=== PATIENT | female | born 1960 | race African-American/Black ===

== ENCOUNTER 2022-07-13 14:26 | Outpatient (REF) | payer BC, SELFPAY ==
[2022-07-13 14:45] LABS: MANUAL DIFF FLAG NO
[2022-07-13 14:54] LABS: Basophils Percent Auto 0.5 % (0-2); Eosinophils Absolute Auto 0.1 X10*3/uL (0.0-0.4); Eosinophils Percent Auto 1.5 % (0-4); Hematocrit 41.9 % (37.0-47.0); Hemoglobin 15.3 g/dl (12.0-16.0); Imm Gran Abs Auto 0.01 X10*3/uL (0.00-0.03); Imm Gran Pct Auto 0.1 % (0.0-0.4); Lymphocytes Absolute Auto 4.2 X10*3/uL (1.2-4.9); Lymphocytes Percent Auto 56.1 % (20-40); Mean Corpuscular HGB Conc 36.5 g/dl (31.0-35.0); Mean Corpuscular Hemoglobin 30.1 pg (27.0-33.0); Mean Corpuscular Volume 82.3 fL (80.0-98.0); Monocytes Absolute Auto 0.4 X10*3/uL (0.1-1.2); Monocytes Percent Auto 5.4 % (2-11); Neutrophils Absolute Auto 2.7 x10*3/uL (2.0-8.3); Neutrophils Percent Auto 36.4 % (45-73); Platelet Count 255 X10*3/uL (160-400); Red Blood Count 5.09 X10*6/uL (4.20-5.50); Red Cell Distribution Width 13.9 % (11.0-16.0); White Blood Count 7.5 X10*3/uL (4.8-10.8)
[2022-07-20 20:33] LABS: JCV Antibody NEGATIVE; JCV Index Value 0.11
== END 2022-07-13 14:27 | disposition home or self-care (01) ==
LOC: HO.LAB 14:26
PROVIDERS: PCP Hospitalist; Visit Provider Psychiatry & Neurology Neurology
DX: G35 Multiple sclerosis (principal)
CPT/HCPCS: 36415; 85025; 86711

== ENCOUNTER 2023-07-28 09:39 | Outpatient (REF) | payer BC, SELFPAY ==
[2023-07-28 10:00] LABS: Basophils Absolute Auto 0.1 X10*3/uL (0.0-0.2); Basophils Percent Auto 0.9 % (0-2); Eosinophils Absolute Auto 0.3 X10*3/uL (0.0-0.4); Eosinophils Percent Auto 3.9 % (0-4); Hematocrit 40.4 % (37.0-47.0); Hemoglobin 14.3 g/dl (12.0-16.0); Imm Gran Abs Auto 0.03 X10*3/uL (0.00-0.03); Imm Gran Pct Auto 0.3 % (0.0-0.4); Lymphocytes Absolute Auto 5.2 X10*3/uL (1.2-4.9); Lymphocytes Percent Auto 60.1 % (20-40); MANUAL DIFF FLAG SCAN; Mean Corpuscular HGB Conc 35.4 g/dl (31.0-35.0); Mean Corpuscular Hemoglobin 29.3 pg (27.0-33.0); Mean Corpuscular Volume 82.8 fL (80.0-98.0); Mean Platelet Volume 9.4 fL (9.4-12.3); Monocytes Absolute Auto 0.5 X10*3/uL (0.1-1.2); Monocytes Percent Auto 5.9 % (2-11); NRBC Pct Auto 0.6 /100WBC (0.0-0.2); Neutrophils Absolute Auto 2.5 x10*3/uL (2.0-8.3); Neutrophils Percent Auto 28.9 % (45-73); Platelet Count 277 X10*3/uL (160-400); Red Blood Count 4.88 X10*6/uL (4.20-5.50); Red Cell Distribution Width 15.2 % (11.0-16.0); SCAN SMEAR FLAG 1; White Blood Count 8.7 X10*3/uL (4.8-10.8)
[2023-07-28 12:32] LABS: SLIDE REVIEW VERIFIED
[2023-08-05 12:24] LABS: JCV Antibody INDETERMINATE; JCV Index Value 0.21
[2023-08-05 12:35] LABS: JCV Ab Inhibition FINAL RSLT: NEGATIVE
== END 2023-07-28 09:40 | disposition home or self-care (01) ==
LOC: HO.LAB 09:39
PROVIDERS: PCP Hospitalist; Visit Provider Psychiatry & Neurology Neurology
DX: G35 Multiple sclerosis (principal)
CPT/HCPCS: 36415; 85025; 86711

== ENCOUNTER 2024-08-29 12:02 | Outpatient (REF) | payer BC, SELFPAY ==
[2024-08-29 12:31] LABS: Basophils Absolute Auto 0.1 X10*3/uL (0.0-0.2); Basophils Percent Auto 0.7 % (0-2); Eosinophils Absolute Auto 0.2 X10*3/uL (0.0-0.4); Eosinophils Percent Auto 1.5 % (0-4); Hematocrit 42.3 % (37.0-47.0); Hemoglobin 15.6 g/dl (12.0-16.0); Imm Gran Abs Auto 0.04 X10*3/uL (0.00-0.03); Imm Gran Pct Auto 0.4 % (0.0-0.4); Lymphocytes Absolute Auto 6.1 X10*3/uL (1.2-4.9); Lymphocytes Percent Auto 56.4 % (20-40); MANUAL DIFF FLAG SCAN; Mean Corpuscular HGB Conc 36.9 g/dl (31.0-35.0); Mean Corpuscular Hemoglobin 31.1 pg (27.0-33.0); Mean Corpuscular Volume 84.3 fL (80.0-98.0); Mean Platelet Volume 9.8 fL (9.4-12.3); Monocytes Absolute Auto 0.6 X10*3/uL (0.1-1.2); Monocytes Percent Auto 5.2 % (2-11); NRBC Pct Auto 0.7 /100WBC (0.0-0.2); Neutrophils Absolute Auto 3.9 x10*3/uL (2.0-8.3); Neutrophils Percent Auto 35.8 % (45-73); Platelet Count 231 X10*3/uL (160-400); Red Blood Count 5.02 X10*6/uL (4.20-5.50); Red Cell Distribution Width 14.6 % (11.0-16.0); SCAN SMEAR FLAG 1; White Blood Count 10.8 X10*3/uL (4.8-10.8)
[2024-08-29 12:51] LABS: SLIDE REVIEW VERIFIED
[2024-08-29 12:58] LABS: Alanine Aminotransferase 24 U/L (0-31); Albumin Level 4.3 g/dL (3.5-5.0); Alkaline Phosphatase 134 U/L (39-117); Aspartate Amino Transferase 21 U/L (5-31); Bilirubin Direct 0.1 mg/dL (0.0-0.5); Bilirubin Total 0.4 mg/dL (0.0-1.0); Total Protein 7.5 g/dL (6.5-8.0)
--- OUTSIDE RECORDS SUMMARY | 2024-08-29 14:44 | XMS_ITS ---
Author Organization [employer] Address [address] [place] [address] Care Team Providers Care Egg Tester Name Role Phone CRISTINA BELLAMY Primary Care Provider [phone] Allergies Allergen (clinical drug ingredient) Drug/Non Drug Allergy documented on EMR Reaction Allergy Type Onset Date Status bee sting (uncoded) Unknown Allergy Active Shellfish (FN) Shellfish-derived Products Unknown Drug Allergy Active REASON FOR VISIT CPE Medications Medication SIG (Take, Route, Frequency, Duration) Notes Start Date End Date Status Esomeprazole Magnesium 40 MG TAKE 1 CAPSULE BY MOUTH TWICE A DAY for 90 Active Levothyroxine Sodium 150 MCG TAKE 1 TABLET BY MOUTH EVERY DAY for 90 Active Aspirin 81 MG TAKE 1 TABLET BY MOUTH EVERY DAY for 90 Active Invokana 100 MG TAKE 1 TABLET BY MOUTH EVERY DAY FOR 90 DAYS for 90 Active Trulicity 0.75 MG/0.5ML INJECT THE CONTENTS OF 1 PEN SUBCUTANEOUSLY ONCE WEEKLY for 30 Active glipiZIDE 5 MG TAKE 1 TABLET BY MOUth Once a day for 90 Not-Taking Januvia 50 MG TAKE 1 TABLET BY MOUTH EVERY DAY for 90 Not-Taking Atorvastatin Calcium 40 MG TAKE 1 TABLET BY MOUTH EVERY DAY for 90 Active Doxycycline Hyclate 100 MG 1 capsule Orally Twice a day Derm for Alopecia 10/29/2023 Active Tysabri 300 MG/15ML as directed Intravenous q 28 days Active Benzonatate 100 MG 1 capsule as needed Orally Three times a day for 7 days 07/08/2023 Not-Taking Shingrix 50 MCG/0.5ML as directed Intramuscular 1 for 365 days 07/23/2021 Not-Taking Pneumovax 23 25 MCG/0.5ML as directed Injection 1 for 365 days 07/23/2021 Not-Taking hydrOXYzine HCl 25 MG TAKE 1 TABLET BY MOUTH EVERY 8 HOURS NEEDED FOR 30 DAYS for 90 Not-Taking Doxycycline Not-Taki ng Fluticasone Propionate 50 MCG/ACT SPRAY 1 SPRAY INTO EACH NOSTRIL EVERY DAY FOR 30 DAYS as needed for 90 days Active Losartan Potassium 50 MG TAKE 1 TABLET BY MOUTH EVERY DAY for 90 Active metFORMIN HCl 1000 MG TAKE 1 TABLET BY MOUTH TWICE A DAY WITH MEALS for 90 Active Social History Alcohol Screen (Audit-C) Question Answer Notes Did you have a drink contain ing alcohol in the past year? Yes How often did you have a dri nk containing alcohol in the past year? 2 to 4 times a month (2 points) How many drinks did you have on a typical day when you were drinking in the past year? 5 or 6 drinks (2 points) How often did you have 6 or more drinks on one occasion in the past year? Monthly (2 points) Points 6 Interpretation Positive Section Notes: quit smoking July 09, 2022 Vital Signs Temperature 96.7 degrees Fahrenheit 10/29/19 24 Oximetry 100 % 10/29/2023 Heart Rate 79 /min 10/29/2023 Blood pressure systolic 124 mm Hg 10/29/19 24 Blood pressure diastolic 78 mm Hg 024 Weight 177.9 lbs 10/29/2023 BMI 29.96 kg/m2 10/29/2023 Height 64.61 in 10/29/2023 Encounters Encounter Location Date Provider Diagnosis [facility] [address] [address] 10/29/2023 CRISTINA BELLAMY Encounter for genera l adult medical examination without abnormal findings Z00.00 ; 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 Avendano is a 63-year-old lady with hypertension, hyperlipidemia, DM2, acid reflux, hypothyroidism and multiple sclerosis here for annual physical. Plan is as follows: Diabetes mellitus with retinopathy. A1c 5.6. Glucose is 111. She checks his blood sugar at home. She sees her construction skills teacher. Foot care discussed. Continue Trulicity and Metformin 1000 MG. check A1c. EKG is normal sinus rhythm at [address]-T wave changes, normal intervals and no bundle-branch blocks Hypertension. Blood pressure well controlled on current regimen. Continue Losartan 50 MG. Hyperlipidemia. Last lipid panel within normal limits. Continue Atorvastatin 40 MG. Hypothyroidism. Continue Levothyroxine 25 MCG and advised to take it first thing in the morning on an empty stomach. Nicotine dependence. She is still currently smoking and cessation advised. Glaucoma. She sees her construction skills teacher regularly. Dental screening. She sees dentist regularly. Breast cancer screening. She is up-to-date on her mammogram. Colon cancer screening. She had her colonoscopy done in 2018 and is on 8-[id number]-[id number]. Immunizations. She is up-to-date on her COVID vaccinations. Blood work reviewed with patient and questions answered. Screening blood work before next appointment. General health concerns discussed with patient. Scribe services used to formulate this note under HIPAA compliance and under [place] law mandated for scribe services. Patient aware of service. Verbal consent and written consent taken from the patient. Patient understands and verbalizes understanding of the scribes services and all questions answered regarding scribes services. Patient agrees to use of scribes services. 10/29/2023 Diabetes mellitus due to underlying condition with unspecified diabetic retinopathy with macular edema (ICD-10 - E08.311) Ms. Avendano is a 63-year-old lady with hypertension, hyperlipidemia, DM2, acid reflux, hypothyroidism and multiple sclerosis here for annual physical. Plan is as follows: Diabetes mellitus with retinopathy. A1c 5.6. Glucose is 111. She checks his blood sugar at home. She sees her construction skills teacher. Foot care discussed. Continue Trulicity and Metformin 1000 MG. check A1c. EKG is normal sinus rhythm at [address]-T wave changes, normal intervals and no bundle-branch blocks Hypertension. Blood pressure well controlled on current regimen. Continue Losartan 50 MG. Hyperlipidemia. Last lipid panel within normal limits. Continue Atorvastatin 40 MG. Hypothyroidism. Continue Levothyroxine 25 MCG and advised to take it first thing in the morning on an empty stomach. Nicotine dependence. She is still currently smoking and cessation advised. Glaucoma. She sees her construction skills teacher regularly. Dental screening. She sees dentist regularly. Breast cancer screening. She is up-to-date on her mammogram. Colon cancer screening. She had her colonoscopy done in 2018 and is on 3-[id number]-[id number]. Immunizations. She is up-to-date on her COVID vaccinations. Blood work reviewed with patient and questions answered. Screening blood work before next appointment. General health concerns discussed with patient. Scribe services used to formulate this note under HIPAA compliance and under [place] law mandated for scribe services. Patient aware of service. Verbal consent and written consent taken from the patient. Patient understands and verbalizes understanding of the scribes services and all questions answered regarding scribes services. Patient agrees to use of scribes services. 10/29/2023 Essential (primary) hypertension (ICD-10 - I10) Ms. Avendano is a 63-year-old lady with hypertension, hyperlipidemia, DM2, acid reflux, hypothyroidism and multiple sclerosis here for annual physical. Plan is as follows: Diabetes mellitus with retinopathy. A1c 5.6. Glucose is 111. She checks his blood sugar at home. She sees her construction skills teacher. Foot care discussed. Continue Trulicity and Metformin 1000 MG. check A1c. EKG is normal sinus rhythm at [address]-T wave changes, normal intervals and no bundle-branch blocks Hypertension. Blood pressure well controlled on current regimen. Continue Losartan 50 MG. Hyperlipidemia. Last lipid panel within normal limits. Continue Atorvastatin 40 MG. Hypothyroidism. Continue Levothyroxine 25 MCG and advised to take it first thing in the morning on an empty stomach. Nicotine dependence. She is still currently smoking and cessation advised. Glaucoma. She sees her construction skills teacher regularly. Dental screening. She sees dentist regularly. Breast cancer screening. She is up-to-date on her mammogram. Colon cancer screening. She had her colonoscopy done in 2018 and is on 4-[id number]-[id number]. Immunizations. She is up-to-date on her COVID vaccinations. Blood work reviewed with patient and questions answered. Screening blood work before next appointment. General health concerns discussed with patient. Scribe services used to formulate this note under HIPAA compliance and under [place] law mandated for scribe services. Patient aware of service. Verbal consent and written consent taken from the patient. Patient understands and verbalizes understanding of the scribes services and all questions answered regarding scribes services. Patient agrees to use of scribes services. 10/29/2023 Hyperlipidemia, unspecified (ICD-10 - E78.5) Ms. Avendano is a 63-year-old lady with hypertension, hyperlipidemia, DM2, acid reflux, hypothyroidism and multiple sclerosis here for annual physical. Plan is as follows: Diabetes mellitus with retinopathy. A1c 5.6. Glucose is 111. She checks his blood sugar at home. She sees her construction skills teacher. Foot care discussed. Continue Trulicity and Metformin 1000 MG. check A1c. EKG is normal sinus rhythm at [address]-T wave changes, normal intervals and no bundle-branch blocks Hypertension. Blood pressure well controlled on current regimen. Continue Losartan 50 MG. Hyperlipidemia. Last lipid panel within normal limits. Continue Atorvastatin 40 MG. Hypothyroidism. Continue Levothyroxine 25 MCG and advised to take it first thing in the morning on an empty stomach. Nicotine dependence. She is still currently smoking and cessation advised. Glaucoma. She sees her construction skills teacher regularly. Dental screening. She sees dentist regularly. Breast cancer screening. She is up-to-date on her mammogram. Colon cancer screening. She had her colonoscopy done in 2018 and is on 3-shie-ddfls. Immunizations. She is up-to-date on her COVID vaccinations. Blood work reviewed with patient and questions answered. Screening blood work before next appointment. General health concerns discussed with patient. Scribe services used to formulate this note under HIPAA compliance and under [place] law mandated for scribe services. Patient aware of service. Verbal consent and written consent taken from the patient. Patient understands and verbalizes understanding of the scribes services and all questions answered regarding scribes services. Patient agrees to use of scribes services. 10/29/2023 Hypothyroidism, unspecified (ICD-10 - E03.9) Ms. Avendano is a 63-year-old lady with hypertension, hyperlipidemia, DM2, acid reflux, hypothyroidism and multiple sclerosis here for annual physical. Plan is as follows: Diabetes mellitus with retinopathy. A1c 5.6. Glucose is 111. She checks his blood sugar at home. She sees her construction skills teacher. Foot care discussed. Continue Trulicity and Metformin 1000 MG. check A1c. EKG is normal sinus rhythm at [address]-T wave changes, normal intervals and no bundle-branch blocks Hypertension. Blood pressure well controlled on current regimen. Continue Losartan 50 MG. Hyperlipidemia. Last lipid panel within normal limits. Continue Atorvastatin 40 MG. Hypothyroidism. Continue Levothyroxine 25 MCG and advised to take it first thing in the morning on an empty stomach. Nicotine dependence. She is still currently smoking and cessation advised. Glaucoma. She sees her construction skills teacher regularly. Dental screening. She sees dentist regularly. Breast cancer screening. She is up-to-date on her mammogram. Colon cancer screening. She had her colonoscopy done in 2018 and is on 4-kylz-rqisj. Immunizations. She is up-to-date on her COVID vaccinations. Blood work reviewed with patient and questions answered. Screening blood work before next appointment. General health concerns discussed with patient. Scribe services used to formulate this note under HIPAA compliance and under [place] law mandated for scribe services. Patient aware of service. Verbal consent and written consent taken from the patient. Patient understands and verbalizes understanding of the scribes services and all questions answered regarding scribes services. Patient agrees to use of scribes services. 10/29/2023 Nicotine dependence, cigarettes, uncomplicated (ICD-10 - F17.210) Ms. Avendano is a 63-year-old lady with hypertension, hyperlipidemia, DM2, acid reflux, hypothyroidism and multiple sclerosis here for annual physical. Plan is as follows: Diabetes mellitus with retinopathy. A1c 5.6. Glucose is 111. She checks his blood sugar at home. She sees her construction skills teacher. Foot care discussed. Continue Trulicity and Metformin 1000 MG. check A1c. EKG is normal sinus rhythm at [address]-T wave changes, normal intervals and no bundle-branch blocks Hypertension. Blood pressure well controlled on current regimen. Continue Losartan 50 MG. Hyperlipidemia. Last lipid panel within normal limits. Continue Atorvastatin 40 MG. Hypothyroidism. Continue Levothyroxine 25 MCG and advised to take it first thing in the morning on an empty stomach. Nicotine dependence. She is still currently smoking and cessation advised. Glaucoma. She sees her construction skills teacher regularly. Dental screening. She sees dentist regularly. Breast cancer screening. She is up-to-date on her mammogram. Colon cancer screening. She had her colonoscopy done in 2018 and is on 1-lypt-ltcdd. Immunizations. She is up-to-date on her COVID vaccinations. Blood work reviewed with patient and questions answered. Screening blood work before next appointment. General health concerns discussed with patient. Scribe services used to formulate this note under HIPAA compliance and under [place] law mandated for scribe services. Patient aware of service. Verbal consent and written consent taken from the patient. Patient understands and verbalizes understanding of the scribes services and all questions answered regarding scribes services. Patient agrees to use of scribes services. Plan Of Treatment Medication Medication Name Sig Start Date Stop Date Notes Atorvastatin Calcium 40 MG TAKE 1 TABLET BY MOUTH EVERY DAY for 90 Pending Test Test Name Order Date CHEST C- CT 10/29/2023 Future Test Test Name Order Date Hemoglobin [id number] 10/29/2023 Albumin/Creatinine Ratio,[id number] TSH+Free [id number] 10/29/2023 Lipid [id number] 10/29/2023 Comp. Metabolic Panel [id number] 2023 Next Appt Details Follow Up: 6 Months, Reason: Provider Name:Damon Maldonado, Travis 10/27/2024 08:00:00 AM, [address] [place] [address], [id number], Progress Notes * Wendy AVENDANODOB:1960 (63 yo F)Acc No.[id number]:10/29/2023 Progress Notes Patient:?Wendy AVENDANO Provider:?CRISTINA BELLAMY MD :1960???Age:63 Y???Sex:Female D ate:10/29/2023 Address:[address] [place], [place] [id number] Subjective: * Chief Complaints: * ???CPE * HPI: ???Depression Screening:?PHQ-9?Little interest or pleasure in doing things?Not at all ?Feeling down, depressed, or hopeless?Not at all ?Trouble falling or staying asleep, or sleeping too much?Not at all ?Feeling tired or having little energy?Not at all ?Poor appetite or overeating?Not at all ?Feeling bad about yourself or that you are a failure, or have let yourself or your family down?Not at all ?Trouble concentrating on things, such as reading the newspaper or watching television?Not at all ?Moving or speaking so slowly that other people could have noticed; or the opposite, being so fidgety or restless that you have been moving around a lot more than usual?Not at all ?Thoughts that you would be better off or of hurting yourself in some way?Not at all ?Total Score?0 ???Internal Medicine:? Ms. Avendano is a 63-year-old lady with hypertension, hyperlipidemia, DM2, acid reflux, hypothyroidism and multiple sclerosis here for annual physical. She checks her blood sugars at home and denies any hypoglycemic episodes. She sees her construction skills teacher at [place] every 6 weeks for glaucoma. Hearing is stable. She is physically active. She gained 4 lbs since last visit. She is still smoking half a pack a day. She does not appear anxious or depressed. She sleeps well, appetite is good. No GI or symptoms. She denies any other active issues or concerns. * ROS:?General/Constitutional:?Overall health?Good.?Change in appetite?denies.?Chills?denies.?Fever?denies.?Night sweats?denies.?Sleep disturbance?denies.?Weight gain?denies.?Weight loss?denies.?Neurologic:?Difficulty speaking?denies.?Dizziness?denies.?Gait abnormality?denies.?Headache?denies.?Loss of strength?denies.?Memory loss?denies.?Seizures?denies.?Tingling/Numbness?denies ?.?Ophthalmologic:?Blurred vision?denies.?Discharge?denies.?Dry eye?denies.?Red eye?denies.?ENT:?Change in Voice?Denies.?Cold Symptoms?Denies.?Cough?Denies.?Dizziness?Denies.?Nasal Congestion?Denies.?Otalgia?Denies.?postnasal drip?Denies.?Blocked ear?denies.?Nosebleed?denies.?Snoring?denies.?Cardiovascular:?Diaphoresis?Denies.?Pedal Edema?Denies.?PND (Paroxsymal nocturnal dyspnea)?Denies.?Chest pain?denies.?Difficulty laying flat?denies.?Dyspnea on exertion?denies.?Heart murmur?denies.?Orthopnea?denies.?Respiratory:?Snoring?denies.?Asthma?denies.?Cough?denies.?Shortness of breath with exertion?denies.?Sputum production?denies.?Wheezing?denies.?Gastrointestinal:?Change in bowel habits?denies.?Constipation?denies.?Decreased appetite?denies.?Diarrhea?denies.?Heartburn?denies.?Nausea?denies.?Vomiting?natanael es.?Musculoskeletal:?tingling/numbness?Denies.?myalgias?Denies.?Joint Swelling?Denies.?extremeties?normal.?Arthritis?denies.?Back problems?denies.?Carpal tunnel?denies.?Joint stiffness?denies.?Muscle aches?denies.?Endocrine:?Bowel Changes?Denies.?Breast Discharge?Denies.?poor libido?Denies.?Cold intolerance?denies.?Excessive sweating?denies.?Excessive thirst?denies.?Frequent urination?denies.?Thyroid problems?denies.?Skin:?Bruising?Denies.?Eczema?denies.?Hair changes?denies.?Rash?denies.?Skin lesion(s)?denies.?Psychiatric:?Anxiety?denies.?Depressed mood?denies.?Difficulty sleeping?denies.?Nervous breakdown?denies.?Substance abuse?denies.?Urology:?abnormal menstrual bleeding?denies.?blood in urine?denies.?burning on urination?denies.?difficulty urinating?denies.?discharge?denies.?dysuria?denies.? * Medical History:? * Surgical History:?wrist surg kaitlynn right foot surgery tonsillectomy tubal ligation right cataract surgery by Dr. Quintanilla 10/2021left cataract surgery by Dr. Quintanilla 11/2021 * Hospitalization/Major Diagno stic Procedure:?Denies Past Hospitalization * Family History:?Father: pedro armendariz, crohns disease, diagnosed with Diabetes.?Mother: alive, colon cancer, diagnosed with Diabetes.? Brother from his appendix rupturing. * Social History:?Drugs/Alcohol:?Alcohol Screen (Audit-C)?Did you have a drink containing alcohol in the past year??Yes ?How often did you have a drink containing alcohol in the past year??2 to 4 times a month (2 points) ?How many drinks did you have on a typical day when you were drinking in the past year??5 or 6 drinks (2 points) ?How often did you have 6 or more drinks on one occasion in the past year??Monthly (2 points) ?Points?6 ?Interpretation?Positive ???Miscellaneous:?Exercise: none. ?Living with: alone. ?Marital status: single. ?Occupation: Retired,. ???quit smoking July 09, 2022. * Medications:?TakingDoxycycli ne Hyclate 100 MG Capsule 1 capsule Orally Twice a day , Notes to Pharmacist: Derm for AlopeciaTysabri 300 MG/15ML Concentrate as directed Intravenous q 28 days Trulicity 0.75 MG/0.5ML Solution Pen-injector INJECT THE CONTENTS OF 1 PEN SUBCUTANEOUSLY ONCE WEEKLY Aspirin 81 MG Tablet Delayed Release TAKE 1 TABLET BY MOUTH EVERY DAY Invokana 100 MG Tablet TAKE 1 TABLET BY MOUTH EVERY DAY FOR 90 DAYS Esomeprazole Magnesium 40 MG Capsule Delayed Release TAKE 1 CAPSULE BY MOUTH TWICE A DAY Levothyroxine Sodium 150 MCG Tablet TAKE 1 TABLET BY MOUTH EVERY DAY Fluticasone Propionate 50 MCG/ACT Suspension SPRAY 1 SPRAY INTO EACH NOSTRIL EVERY DAY FOR 30 DAYS as needed Losartan Potassium 50 MG Tablet TAKE 1 TABLET BY MOUTH EVERY DAY metFORMIN HCl 1000 MG Tablet TAKE 1 TABLET BY MOUTH TWICE A DAY WITH MEALS Atorvastatin Calcium 40 MG Tablet TAKE 1 TABLET BY MOUTH EVERY DAY Taking Doxycycline Hyclate 100 MG Capsule 1 capsule Orally Twice a day , Notes to Pharmacist: Derm for AlopeciaTaking Tysabri 300 MG/15ML Concentrate as directed Intravenous q 28 days Taking Trulicity 0.75 MG/0.5ML Solution Pen-injector INJECT THE CONTENTS OF 1 PEN SUBCUTANEOUSLY ONCE WEEKLY Taking Aspirin 81 MG Tablet Delayed Release TAKE 1 TABLET BY MOUTH EVERY DAY Taking Invokana 100 MG Tablet TAKE 1 TABLET BY MOUTH EVERY DAY FOR 90 DAYS Taking Esomeprazole Magnesium 40 MG Capsule Delayed Release TAKE 1 CAPSULE BY MOUTH TWICE A DAY Taking Levothyroxine Sodium 150 MCG Tablet TAKE 1 TABLET BY MOUTH EVERY DAY Taking Fluticasone Propionate 50 MCG/ACT Suspension SPRAY 1 SPRAY INTO EACH NOSTRIL EVERY DAY FOR 30 DAYS as needed Taking Losartan Potassium 50 MG Tablet TAKE 1 TABLET BY MOUTH EVERY DAY Taking metFORMIN HCl 1000 MG Tablet TAKE 1 TABLET BY MOUTH TWICE A DAY WITH MEALS Taking Atorvastatin Calcium 40 MG Tablet TAKE 1 TABLET BY MOUTH EVERY DAY Not-TakingBenzonatate 100 MG Capsule 1 capsule as needed Orally Three times a day hydrOXYzine HCl 25 MG Tablet TAKE 1 TABLET BY MOUTH EVERY 8 HOURS NEEDED FOR 30 DAYS Doxycycline Shingrix 50 MCG/0.5ML Suspension Reconstituted as directed Intramuscular 1 Pneumovax 23 25 MCG/0.5ML Injectable as directed Injection 1 glipiZIDE 5 MG Tablet TAKE 1 TABLET BY MOUth Once a day Januvia 50 MG Tablet TAKE 1 TABLET BY MOUTH EVERY DAY Medication List reviewed and reconciled with the patientNot-Taking Benzonatate 100 MG Capsule 1 capsule as needed Orally Three times a day Not-Taking hydrOXYzine HCl 25 MG Tablet TAKE 1 TABLET BY MOUTH EVERY 8 HOURS NEEDED FOR 30 DAYS Not-Taking Doxycycline Not-Taking Shingrix 50 MCG/0.5ML Suspension Reconstituted as directed Intramuscular 1 Not-Taking Pneumovax 23 25 MCG/0.5ML Injectable as directed Injection 1 Not- Taking glipiZIDE 5 MG Tablet TAKE 1 TABLET BY MOUth Once a day Not-Taking Januvia 50 MG Tablet TAKE 1 TABLET BY MOUTH EVERY DAY Medication List reviewed and reconciled with the patient * Allergies:?bee sting: Allerg yShellfish-derived Products: Allergyno[Allergies Verified] Objective: * Vitals:?Temp:96.7F, Oxygen s at %:100%, HR:79/min, BP:124/78mm Hg, Wt:177.9lbs, BMI:29.96Index, Ht: 64.61 in. * ???Past Orders: ???Lab:HEMOGLOBIN A1C WITH E ST GLUCOSE (Order Date - 11/25/2022) (Collection Date & Time - 11/25/2022 10:35 AM) ? Value Reference Range ?HEMOGLOBIN A1C 5.6 (4.0- 5.6) - % ?ESTIMATE AVERAGE GLUCOSE 114 - MG/DL ???Lab:TSH WITH REFLEX TO FT 4 (Order Date - 11/25/2022) (Collection Date & Time - 11/25/2022 10:35 AM) ? Value Reference Range ?TSH 2.67 (0.4-4.2) - uIU /mL ???Lab:COMPREHENSIVE METABOL IC PANEL (Order Date - 10/07/2022) (Collection Date & Time - 10/07/2022 09:43 AM) ? Value Reference Range ?ALBUMIN 4.4 (3.4-4.8) - GM/DL ?ALK PHOS 116 H (35-104) - U/L ?BILIRUBIN,TOTAL 0.5 (0-1 .2) - MG/DL ?CALCIUM 10.1 (8.6-10.5) - MG/DL ?BICARBONATE 24 (22-29) - MMOL/L ?CHLORIDE 109 H (98-107) - MMOL/L ?EST GFR NON 84 - ML/MIN/1.73 M2 ?CREATININE 0.8 (0.5-1.0) - MG/DL ?ANION GAP 6 (4-17) - ?GLUCOSE 111 H (70-99) - MG /DL ?AST 19 (0-32) - U/L ?ALT 16 (0-33) - U/L ?POTASSIUM 4.5 (3.6-5.2) - MMOL/L ?SODIUM 139 (133-145) - M MOL/L ?TOTAL PROTEIN 6.4 (6.2-8 .2) - GM/DL ?BUN 10 (8-23) - MG/DL ?AG RATIO 2.2 - ???Lab:LIPID PANEL (Order Da te - 10/07/2022) (Collection Date & Time - 10/07/2022 09:43 AM) ? Value Reference Range ?LDL CHOLESTEROL, CALCULATED 74 (0-130) - MG/DL ?CHOLESTEROL, TOTAL 158 ( <200) - MG/DL ?HDL CHOL 70 (>39) - MG/ DL ?NON HDL CHOLESTEROL (CALC) 88 (<160) - MG/DL ?TRIGLYCERIDE 72 (<150) - MG/DL * Examination: ???General Examination: ?Psychiatry?Normal.?GENERAL APPEARANCE:?Well developed, well nourished, in no acute distress.?MUSCULOSKELETAL:?Normal.?HEAD:?Normocephalic, atraumatic.?EYES:?Pupils equal, round, reactive to light and accommodation, sclera non-icteric.?EARS:?impacted cerumen.?ORAL CAVITY:?Normal.?THROAT:?Clear.?OROPHARYNX?Normal.?SINUSES?Normal.?NECK/THYROID:?Neck supple, full range of motion, no cervical lymphadenopathy.?SKIN:?Warm and dry, no suspicious lesions..?HEART:?Normal.?LUNGS:?normal .?BREASTS:?__.?ABDOMEN:?Soft, nontender, nondistended, bowel sounds present, normal.?EXTREMITIES:?Normal.?PERIPHERAL PULSES:?Normal.?NEUROLOGIC:?Nonfocal,? appropriate?motor strength normal upper and lower extremities, sensory exam intact.?FEMALE GENITOURINARY:?__.?MALE GENITOURINARY:?__.?PODIATRIC:?tinea?unguium?right?great?toenail.?Travel Specialist? .?Diabetic Foot Exam: ?Appearance?normal.?Light Touch Sensation?normal.?Sense of Vibration?normal.?Pulse: Posterior Tibial?normal.?Pulse: Dorsal Pedis?normal.?Hammer Toe?negative.?Tinea Pedis?negative.?Skin Changes?no skin breaks.? 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 Ms. Avendano is a 63-year-old lady with hypertension, hyperlipidemia, DM2, acid reflux, hypothyroidism and multiple sclerosis here for annual physical. Plan is as follows: Diabetes mellitus with retinopathy. A1c 5.6. Glucose is 111. She checks his blood sugar at home. She sees her construction skills teacher. Foot care discussed. Continue Trulicity and Metformin 1000 MG. check A1c. EKG is normal sinus rhythm at [address]-T wave changes, normal intervals and no bundle-branch blocks Hypertension. Blood pressure well controlled on current regimen. Continue Losartan 50 MG. Hyperlipidemia. Last lipid panel within normal limits. Continue Atorvastatin 40 MG. Hypothyroidism. Continue Levothyroxine 25 MCG and advised to take it first thing in the morning on an empty stomach. Nicotine dependence. She is still currently smoking and cessation advised. Glaucoma. She sees her construction skills teacher regularly. Dental screening. She sees dentist regularly. Breast cancer screening. She is up-to-date on her mammogram. Colon cancer screening. She had her colonoscopy done in 2018 and is on [id number]. Immunizations. She is up-to-date on her COVID vaccinations. Blood work reviewed with patient and questions answered. Screening blood work before next appointment. General health concerns discussed with patient. Scribe services used to formulate this note under HIPAA compliance and under [place] law mandated for scribe services. Patient aware of service. Verbal consent and written consent taken from the patient. Patient understands and verbalizes understanding of the scribes services and all questions answered regarding scribes services. Patient agrees to use of scribes services. Plan: * Treatment: 2.?Essential (primary) hyper tension?LAB: Albumin/Creatinine Ratio,Urine-[id number] (Ordered for 10/29/2023) ?LAB: Comp. Metabolic Panel ([id number] (Ordered for 10/29/2023) ?LAB: Lipid Panel-[id number] (Ordered for 10/29/2023) 3.?Hypothyroidism, unspecifi ed?LAB: TSH+Free [id number] (Ordered for 10/29/2023) 4.?Nicotine dependence, ciga rettes, uncomplicated?Imaging: CHEST C- CT 5.?Others? Refill Atorvastatin Calcium Tablet, 40 MG, TAKE 1 TABLET BY MOUTH EVERY DAY, 90, 90 Tablet, Refills 4.?? * Procedure Codes:? 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 * Follow Up:?6 Months * Images: * Sign off status: Completed true * Provider:?CRISTINA BELLAMY MD Date:?10/28 Generated for Laurent solomon/[place]/eTransmitting on:?08/29/2024 02:43 PM EST History and Physical Notes * HPI (History of Present Illness) Category Sub-Category Detail Notes Category Not es Depression Screening PHQ-9 Little inte rest or pleasure in doing things: Not at all Feeling down, depressed, or hopeless: No t at all Trouble falling or staying asleep, or sl eeping too much: Not at all Feeling tired or having little energy: N ot at all Poor appetite or overeating: Not at all Feeling bad about yourself o r that you are a failure, or have let yourself or your family down: Not at all Trouble concentrating on thi ngs, such as reading the newspaper or watching television: Not at all Moving or speaking so slowly that other people could have noticed; or the opposite, being so fidgety or restless that you have been moving around a lot more than usual: Not at all Thoughts that you would be b michael off or of hurting yourself in some way: Not at all Total Score: 0 Internal Medicine Ms. Avendano is a 63-year-old lady with hypertension, hyperlipidemia, DM2, acid reflux, hypothyroidism and multiple sclerosis here for annual physical. She checks her blood sugars at home and denies any hypoglycemic episodes. She sees her construction skills teacher at [place] every 6 weeks for glaucoma. Hearing is stable. She is physically active. She gained 4 lbs since last visit. She is still smoking half a pack a day. She does not appear anxious or depressed. She sleeps well, appetite is good. No GI or symptoms. She denies any other active issues or concerns. Examination Category Sub-Category Detail Notes Category Not es General Examination GENERAL APPEARANCE: Well dev eloped, well nourished, in no acute distress HEAD: Normocephalic, atrau matic EYES: Pupils equal, round, reactive to light and accommodation, sclera non-icteric EARS: impacted cerumen THROAT: Clear NECK/THYROID: Neck supple, full ra nge of motion, no cervical lymphadenopathy HEART: Normal LUNGS: normal ABDOMEN: Soft, nontender, non distended, bowel sounds present, normal NEUROLOGIC: Nonfocal, appropriat e motor strength normal upper and lower extremities, sensory exam intact SKIN: Warm and dry, no tor picious lesions. EXTREMITIES: Normal PERIPHERAL PULSES: Normal BREASTS: __ MUSCULOSKELETAL: Normal MALE GENITOURINARY: __ FEMALE GENITOURINARY: __ ORAL CAVITY: Normal PODIATRIC: tinea unguium right great toenail Psychiatry Normal OROPHARYNX Normal SINUSES Normal Travel Specialist Diabetic Foot Exam Appearance normal Light Touch Sensation normal Sense of Vibration normal Pulse: Posterior Tibial normal Pulse: Dorsal Pedis normal Hammer Toe negative Tinea Pedis negative Skin Changes no skin breaks
--- OUTSIDE RECORDS SUMMARY | 2024-08-29 14:44 | XMS_ITS | Patient Health Record ---
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 Name Role Phone CRISTINA BELLAMY Primary Care Provider Damon Maldonado Unavailable [phone] Allergies Allergen (clinical drug ingredient) Drug/Non Drug Allergy documented on EMR Reaction Allergy Type Onset Date Status bee sting (uncoded) Unknown Allergy Active Shellfish (FN) Shellfish-derived Products Unknown Drug Allergy Active Results Component Value Reference Range Notes Denzel Screening Digital Reviewed date:03/14/2024 01:04:52 PM Interpretation: Performing Lab: Notes/Report: Original Ordering Provider: CRISTINA BELLAMY MD [facility] Reason For Referral No Information Medications Medication SIG (Take, Route, Frequency, Duration) Notes Start Date End Date Status Tysabri 300 MG/15ML as directed Intravenous q 28 days Active Doxycycline Hyclate 20 MG 20 capsule Orally Twice a day Derm for Alopecia 10/29/2023 Active Aspirin 81 MG TAKE 1 TABLET BY MOUTH EVERY DAY for 90 Active Invokana 100 MG TAKE 1 TABLET BY MOUTH EVERY DAY FOR 90 DAYS for 90 Active Nicotine Polacrilex 4 MG 1 piece chew for 30 minutes as needed Mouth/Throat every 8 hrs for 30 days 04/28/2024 Active Levothyroxine Sodium 25 MCG TAKE 1 TABLET BY MOUTH EVERY DAY FOR 90 DAYS for 90 Active Trulicity 0.75 MG/0.5ML INJECT THE CONTENTS OF 1 PEN SUBCUTANEOUSLY ONCE WEEKLY for 28 Active Atorvastatin Calcium 40 MG TAKE 1 TABLET BY MOUTH EVERY DAY for 90 Active Januvia 50 MG TAKE 1 TABLET BY MOUTH EVERY DAY for 90 Not-Taking metFORMIN HCl 1000 MG TAKE 1 TABLET BY MOUTH TWICE A DAY WITH MEALS for 90 Active glipiZIDE 5 MG TAKE 1 TABLET BY MOUth Once a day for 90 Not-Taking Losartan Potassium 50 MG TAKE 1 TABLET BY MOUTH EVERY DAY for 90 Active Pneumovax 23 25 MCG/0.5ML as directed Injection 1 for 365 days 07/23/2021 Not-Taking Fluticasone Propionate 50 MCG/ACT SPRAY 1 SPRAY INTO EACH NOSTRIL EVERY DAY FOR 30 DAYS as needed for 90 days Active Shingrix 50 MCG/0.5ML as directed Intramuscular 1 for 365 days 07/23/2021 Not-Taking Doxycycline Not-Taki ng hydrOXYzine HCl 25 MG TAKE 1 TABLET BY MOUTH EVERY 8 HOURS NEEDED FOR 30 DAYS for 90 Not-Taking Benzonatate 100 MG 1 capsule as needed Orally Three times a day for 7 days 07/08/2023 Not-Taking Levothyroxine Sodium 150 MCG TAKE 1 TABLET BY MOUTH EVERY DAY for 90 Active Esomeprazole Magnesium 40 MG TAKE 1 CAPSULE BY MOUTH TWICE A DAY for 90 Active Immunizations Vaccine Route Administration Date Status Comme nts COVID Unknown 09/16/2020 Administered moderna COVID Unknown 10/14/2020 Administered moderna COVID Moderna Unknown 09/16/2020 Administered COVID Moderna Unknown 10/14/2020 Administered COVID Moderna Unknown 08/22/2021 Administered Flublok [id number] IM Intramuscular 04/28/2024 Administered Influenza, high dose seasonal IM Intramuscular 05/17/2019 Administered Influenza, high dose seasonal IM Intramuscular 03/21/2020 Administered Influenza, seasonal, injectable, preservative free, 3 yrs and above IM Intramuscular 06/16/2018 Administered Pneumococcal conjugate PCV 13 Unknown 07/23/2020 Administered Pneumococcal polysaccharide PPV23 Unknown 01/11/2019 Administered Shingrix Unknown 07/23/2020 Administered Shingrix Unknown 12/30/2020 Administered Social History Tobacco Use: Social History Observation Description Date Details (start date - stop date) Former Smoker NA - NA Tobacco Use/Smoking Question Answer Notes Are you a former smoker Alcohol Screen (Audit-C) Question Answer Notes Did [...] Section Notes: quit smoking July 09, 2022 quit smoking July 09, 2022 quit smoking July 09, 2022 quit smoking July 09, 2022 quit smoking July 09, 2022 Problems Problem Type SNOMED Code ICD Code Onset Dates Problem Status W/U Status Risk Notes Problem Hypothyroidism (82711016) Hypothyroidism, unspecified (E03.9) Active confirmed Problem Diabetic retinopathy (8709032) Diabetes mellitus due to underlying condition with unspecified diabetic retinopathy with macular edema (E08.311) Active confirmed Problem Tobacco user (386189360) Nicotine dependence, cigarettes, uncomplicated (F17.210) Active confirmed Problem Generalized anxiety disorder (26032102) Generalized anxiety disorder (F41.1) Active confirmed Problem Multiple sclerosis (37464841) Multiple sclerosis (G35) Active confirmed Problem Essential hypertension (79374366) Essential (primary) hypertension (I10) Active confirmed Problem Adult health examination (275950207) Encounter for general adult medical examination without abnormal findings (Z00.00) Active confirmed Problem Hyperlipidemia (82685763) Hyperlipidemia, unspecified (E78.5) Active confirmed Problem Abnormal gait (46617061) Gait instability (R26.81) Active confirmed Problem Tobacco dependence (74319254) Tobacco dependence (F17.200) Active confirmed Vital Signs Heart Rate 84 /min 04/28/2024 Temperature 96.7 degrees Fahrenheit 10/29/2023 Blood pressure diastolic 60 mm Hg 04/28/2024 Oximetry 98 % 04/28/2024 Height 64.61 in 04/28/2024 Blood pressure systolic 102 mm Hg 04/28/2024 Weight 186.4 lbs 04/28/2024 BMI 31.39 kg/m2 04/28/2024 Encounters Encounter Location Date Provider Diagnosis [facility] [address] [address] 10/29/2023 CRISTINA BELLAMY Encounter for genera l adult medical examination without abnormal findings Z00.00 ; Diabetes mellitus due to underlying condition with unspecified diabetic retinopathy with macular edema E08.311 ; Essential (primary) hypertension I10 ; Hyperlipidemia, unspecified E78.5 ; Hypothyroidism, unspecified E03.9 and Nicotine dependence, cigarettes, uncomplicated F17.210 [facility] [address] [place] [address] 04/28/2024 Damon Maldonado Diabetes mellitus du e to underlying condition with unspecified diabetic retinopathy with macular edema E08.311 ; Essential (primary) hypertension I10 ; Hyperlipidemia, unspecified E78.5 ; Hypothyroidism, unspecified E03.9 ; Tobacco dependence F17.200 ; Encounter for immunization Z23 and Tobacco abuse counseling Z71.6 [facility] [address] [place] [address] 10/28/2023 CRISTINA BELLAMY Assessments Encounter Date Diagnosis (ICD Code) Assessment Notes Treatment Notes Treatment Clinical Notes Section Notes 04/28/2024 Diabetes mellitus due to underlying condition with unspecified diabetic retinopathy with macular edema (ICD-10 - E08.311) Ms. Will is a 64-year-old lady with hypertension, hyperlipidemia, DM2, acid reflux, hypothyroidism and multiple sclerosis tobacco dependence is here for 6 months follow-up Diabetes mellitus with retinopathy. A1c 5.6.in October 2023 patient was given a lab slip but never did her blood work. She also does not check her blood sugars at home. She sees her hourly manager. Foot care discussed. Continue Trulicity and Metformin 1000 MG. check A1c.On the next appointment. Patient was given a new lab slip Hypertension. Blood pressure well controlled on current regimen. Continue Losartan 50 MG.we will check albumin creatinine ratio Hyperlipidemia. Last lipid panel within normal limits. Continue Atorvastatin 40 MG. Hypothyroidism. Continue Levothyroxine 25 MCG and advised to take it first thing in the morning on an empty stomach. Nicotine dependence. She is still currently smoking and cessation advised.she is willing to quit nicotine gum was given Glaucoma. She sees her hourly manager regularly.in [place] obesity exercise diet controlled and lifestyle modification was advised Dental screening. She sees dentist regularly. Breast cancer screening. She is up-to-date on her mammogram. Colon cancer screening. She had her colonoscopy done in 2018 and is on [id number]. Immunizations. She is up-to-date on her COVID vaccinations. flu vaccine will be given today diabetic foot exam she was following with Dr. Sierra he is retired and now she will be going to General health concerns discussed with patient .patient will follow up in 6 months 10/29/2023 Diabetes mellitus due to underlying condition with unspecified diabetic retinopathy with macular edema (ICD-10 - E08.311) Ms. Will is a 63-year-old lady with hypertension, hyperlipidemia, DM2, acid reflux, hypothyroidism and multiple sclerosis here for annual physical. Plan is as follows: Diabetes mellitus with retinopathy. A1c 5.6. Glucose is 111. She checks his blood sugar at home. She sees her hourly manager. Foot care discussed. Continue Trulicity and Metformin [...] and cessation advised. Glaucoma. She sees her hourly manager regularly. Dental screening. She sees dentist regularly. Breast cancer screening. She is up-to-date on her mammogram. Colon cancer screening. She had her colonoscopy done in 2018 and is on [id number]. Immunizations. She is up-to-date on her COVID vaccinations. Blood work reviewed with patient and questions answered. Screening blood work before next appointment. General health concerns discussed with patient. Scribe services used to formulate this note under HIPAA compliance and under [place] law mandated for scribe services. Patient aware of service. Verbal consent and written consent taken from the patient. Patient understands and verbalizes understanding of the scribes services and all questions answered regarding scribes services. Patient agrees to use of scribes services. 10/29/2023 Encounter for general adult medical examination without abnormal findings (ICD-10 - Z00.00) Ms. Will is a 63-year-old lady with hypertension, hyperlipidemia, DM2, acid reflux, hypothyroidism and multiple sclerosis here for annual physical. Plan is as follows: Diabetes mellitus with retinopathy. A1c 5.6. Glucose is 111. She checks his blood sugar at home. She sees her hourly manager. Foot care discussed. Continue Trulicity and Metformin [...] and cessation advised. Glaucoma. She sees her hourly manager regularly. Dental screening. She sees dentist regularly. Breast cancer screening. She is up-to-date on her mammogram. Colon cancer screening. She had her colonoscopy done in 2018 and is on [id number]. Immunizations. She is up-to-date on her COVID vaccinations. Blood work reviewed with patient and questions answered. Screening blood work before next appointment. General health concerns discussed with patient. Scribe services used to formulate this note under HIPAA compliance and under [place] law mandated for scribe services. Patient aware of service. Verbal consent and written consent taken from the patient. Patient understands and verbalizes understanding of the scribes services and all questions answered regarding scribes services. Patient agrees to use of scribes services. 10/29/2023 Essential (primary) hypertension (ICD-10 - I10) Ms. Will is a 63-year-old lady with hypertension, hyperlipidemia, DM2, acid reflux, hypothyroidism and multiple sclerosis here for annual physical. Plan is as follows: Diabetes mellitus with retinopathy. A1c 5.6. Glucose is 111. She checks his blood sugar at home. She sees her hourly manager. Foot care discussed. Continue Trulicity and Metformin [...] and cessation advised. Glaucoma. She sees her hourly manager regularly. Dental screening. She sees dentist regularly. Breast cancer screening. She is up-to-date on her mammogram. Colon cancer screening. She had her colonoscopy done in 2018 and is on 0-[id number]-[id number]. Immunizations. She is up-to-date on her COVID vaccinations. Blood work reviewed with patient and questions answered. Screening blood work before next appointment. General health concerns discussed with patient. Scribe services used to formulate this note under HIPAA compliance and under [place] law mandated for scribe services. Patient aware of service. Verbal consent and written consent taken from the patient. Patient understands and verbalizes understanding of the scribes services and all questions answered regarding scribes services. Patient agrees to use of scribes services. 04/28/2024 Essential (primary) hypertension (ICD-10 - I10) Ms. Will is a 64-year-old lady with hypertension, hyperlipidemia, DM2, acid reflux, hypothyroidism and multiple sclerosis tobacco dependence is here for 6 months follow-up Diabetes mellitus with retinopathy. A1c 5.6.in October 2023 patient was given a lab slip but never did her blood work. She also does not check her blood sugars at home. She sees her hourly manager. Foot care discussed. Continue Trulicity and Metformin 1000 MG. check A1c.On the next appointment. Patient was given a new lab slip Hypertension. Blood pressure well controlled on current regimen. Continue Losartan 50 MG.we will check albumin creatinine ratio Hyperlipidemia. Last lipid panel within normal limits. Continue Atorvastatin 40 MG. Hypothyroidism. Continue Levothyroxine 25 MCG and advised to take it first thing in the morning on an empty stomach. Nicotine dependence. She is still currently smoking and cessation advised.she is willing to quit nicotine gum was given Glaucoma. She sees her hourly manager regularly.in [place] obesity exercise diet controlled and lifestyle modification was advised Dental screening. She sees dentist regularly. Breast cancer screening. She is up-to-date on her mammogram. Colon cancer screening. She had her colonoscopy done in 2018 and is on 6-[id number]-[id number]. Immunizations. She is up-to-date on her COVID vaccinations. flu vaccine will be given today diabetic foot exam she was following with Dr. Sierra he is retired and now she will be going to General health concerns discussed with patient .patient will follow up in 6 months 04/28/2024 Hyperlipidemia, unspecified (ICD-10 - E78.5) Ms. Will is a 64-year-old lady with hypertension, hyperlipidemia, DM2, acid reflux, hypothyroidism and multiple sclerosis tobacco dependence is here for 6 months follow-up Diabetes mellitus with retinopathy. A1c 5.6.in October 2023 patient was given a lab slip but never did her blood work. She also does not check her blood sugars at home. She sees her hourly manager. Foot care discussed. Continue Trulicity and Metformin 1000 MG. check A1c.On the next appointment. Patient was given a new lab slip Hypertension. Blood pressure well controlled on current regimen. Continue Losartan 50 MG.we will check albumin creatinine ratio Hyperlipidemia. Last lipid panel within normal limits. Continue Atorvastatin 40 MG. Hypothyroidism. Continue Levothyroxine 25 MCG and advised to take it first thing in the morning on an empty stomach. Nicotine dependence. She is still currently smoking and cessation advised.she is willing to quit nicotine gum was given Glaucoma. She sees her hourly manager regularly.in [place] obesity exercise diet controlled and lifestyle modification was advised Dental screening. She sees dentist regularly. Breast cancer screening. She is up-to-date on her mammogram. Colon cancer screening. She had her colonoscopy done in 2018 and is on 9-qmie-[id number]. Immunizations. She is up-to-date on her COVID vaccinations. flu vaccine will be given today diabetic foot exam she was following with Dr. Sierra he is retired and now she will be going to General health concerns discussed with patient .patient will follow up in 6 months 10/29/2023 Hyperlipidemia, unspecified (ICD-10 - E78.5) Ms. Will is a 63-year-old lady with hypertension, hyperlipidemia, DM2, acid reflux, hypothyroidism and multiple sclerosis here for annual physical. Plan is as follows: Diabetes mellitus with retinopathy. A1c 5.6. Glucose is 111. She checks his blood sugar at home. She sees her hourly manager. Foot care discussed. Continue Trulicity and Metformin [...] and cessation advised. Glaucoma. She sees her hourly manager regularly. Dental screening. She sees dentist regularly. Breast cancer screening. She is up-to-date on her mammogram. Colon cancer screening. She had her colonoscopy done in 2018 and is on [id number]. Immunizations. She is up-to-date on her COVID vaccinations. Blood work reviewed with patient and questions answered. Screening blood work before next appointment. General health concerns discussed with patient. Scribe services used to formulate this note under HIPAA compliance and under [place] law mandated for scribe services. Patient aware of service. Verbal consent and written consent taken from the patient. Patient understands and verbalizes understanding of the scribes services and all questions answered regarding scribes services. Patient agrees to use of scribes services. 10/29/2023 Hypothyroidism, unspecified (ICD-10 - E03.9) Ms. Will is a 63-year-old lady with hypertension, hyperlipidemia, DM2, acid reflux, hypothyroidism and multiple sclerosis here for annual physical. Plan is as follows: Diabetes mellitus with retinopathy. A1c 5.6. Glucose is 111. She checks his blood sugar at home. She sees her hourly manager. Foot care discussed. Continue Trulicity and Metformin [...] and cessation advised. Glaucoma. She sees her hourly manager regularly. Dental screening. She sees dentist regularly. Breast cancer screening. She is up-to-date on her mammogram. Colon cancer screening. She had her colonoscopy done in 2018 and is on 1-hdua-[id number]. Immunizations. She is up-to-date on her COVID vaccinations. Blood work reviewed with patient and questions answered. Screening blood work before next appointment. General health concerns discussed with patient. Scribe services used to formulate this note under HIPAA compliance and under [place] law mandated for scribe services. Patient aware of service. Verbal consent and written consent taken from the patient. Patient understands and verbalizes understanding of the scribes services and all questions answered regarding scribes services. Patient agrees to use of scribes services. 04/28/2024 Hypothyroidism, unspecified (ICD-10 - E03.9) Ms. Will is a 64-year-old lady with hypertension, hyperlipidemia, DM2, acid reflux, hypothyroidism and multiple sclerosis tobacco dependence is here for 6 months follow-up Diabetes mellitus with retinopathy. A1c 5.6.in October 2023 patient was given a lab slip but never did her blood work. She also does not check her blood sugars at home. She sees her hourly manager. Foot care discussed. Continue Trulicity and Metformin 1000 MG. check A1c.On the next appointment. Patient was given a new lab slip Hypertension. Blood pressure well controlled on current regimen. Continue Losartan 50 MG.we will check albumin creatinine ratio Hyperlipidemia. Last lipid panel within normal limits. Continue Atorvastatin 40 MG. Hypothyroidism. Continue Levothyroxine 25 MCG and advised to take it first thing in the morning on an empty stomach. Nicotine dependence. She is still currently smoking and cessation advised.she is willing to quit nicotine gum was given Glaucoma. She sees her hourly manager regularly.in [place] obesity exercise diet controlled and lifestyle modification was advised Dental screening. She sees dentist regularly. Breast cancer screening. She is up-to-date on her mammogram. Colon cancer screening. She had her colonoscopy done in 2018 and is on 1-[id number]-rrbra. Immunizations. She is up-to-date on her COVID vaccinations. flu vaccine will be given today diabetic foot exam she was following with Dr. Sierra he is retired and now she will be going to General health concerns discussed with patient .patient will follow up in 6 months 04/28/2024 Tobacco dependence (ICD-10 - F17.200) Ms. Will is a 64-year-old lady with hypertension, hyperlipidemia, DM2, acid reflux, hypothyroidism and multiple sclerosis tobacco dependence is here for 6 months follow-up Diabetes mellitus with retinopathy. A1c 5.6.in October 2023 patient was given a lab slip but never did her blood work. She also does not check her blood sugars at home. She sees her hourly manager. Foot care discussed. Continue Trulicity and Metformin 1000 MG. check A1c.On the next appointment. Patient was given a new lab slip Hypertension. Blood pressure well controlled on current regimen. Continue Losartan 50 MG.we will check albumin creatinine ratio Hyperlipidemia. Last lipid panel within normal limits. Continue Atorvastatin 40 MG. Hypothyroidism. Continue Levothyroxine 25 MCG and advised to take it first thing in the morning on an empty stomach. Nicotine dependence. She is still currently smoking and cessation advised.she is willing to quit nicotine gum was given Glaucoma. She sees her hourly manager regularly.in [place] obesity exercise diet controlled and lifestyle modification was advised Dental screening. She sees dentist regularly. Breast cancer screening. She is up-to-date on her mammogram. Colon cancer screening. She had her colonoscopy done in 2018 and is on 4-hobx-fgdod. Immunizations. She is up-to-date on her COVID vaccinations. flu vaccine will be given today diabetic foot exam she was following with Dr. Sierra he is retired and now she will be going to General health concerns discussed with patient .patient will follow up in 6 months 10/29/2023 Nicotine dependence, cigarettes, uncomplicated (ICD-10 - F17.210) Ms. Will is a 63-year-old lady with hypertension, hyperlipidemia, DM2, acid reflux, hypothyroidism and multiple sclerosis here for annual physical. Plan is as follows: Diabetes mellitus with retinopathy. A1c 5.6. Glucose is 111. She checks his blood sugar at home. She sees her hourly manager. Foot care discussed. Continue Trulicity and Metformin [...] and cessation advised. Glaucoma. She sees her hourly manager regularly. Dental screening. She sees dentist regularly. Breast cancer screening. She is up-to-date on her mammogram. Colon cancer screening. She had her colonoscopy done in 2018 and is on 5-[id number]-[id number]. Immunizations. She is up-to-date on her COVID vaccinations. Blood work reviewed with patient and questions answered. Screening blood work before next appointment. General health concerns discussed with patient. Scribe services used to formulate this note under HIPAA compliance and under [place] law mandated for scribe services. Patient aware of service. Verbal consent and written consent taken from the patient. Patient understands and verbalizes understanding of the scribes services and all questions answered regarding scribes services. Patient agrees to use of scribes services. 04/28/2024 Encounter for immunization (ICD-10 - Z23) Ms. Will is a 64-year-old lady with hypertension, hyperlipidemia, DM2, acid reflux, hypothyroidism and multiple sclerosis tobacco dependence is here for 6 months follow-up Diabetes mellitus with retinopathy. A1c 5.6.in October 2023 patient was given a lab slip but never did her blood work. She also does not check her blood sugars at home. She sees her hourly manager. Foot care discussed. Continue Trulicity and Metformin 1000 MG. check A1c.On the next appointment. Patient was given a new lab slip Hypertension. Blood pressure well controlled on current regimen. Continue Losartan 50 MG.we will check albumin creatinine ratio Hyperlipidemia. Last lipid panel within normal limits. Continue Atorvastatin 40 MG. Hypothyroidism. Continue Levothyroxine 25 MCG and advised to take it first thing in the morning on an empty stomach. Nicotine dependence. She is still currently smoking and cessation advised.she is willing to quit nicotine gum was given Glaucoma. She sees her hourly manager regularly.in [place] obesity exercise diet controlled and lifestyle modification was advised Dental screening. She sees dentist regularly. Breast cancer screening. She is up-to-date on her mammogram. Colon cancer screening. She had her colonoscopy done in 2018 and is on [id number]-ctyqv. Immunizations. She is up-to-date on her COVID vaccinations. flu vaccine will be given today diabetic foot exam she was following with Dr. Sierra he is retired and now she will be going to General health concerns discussed with patient .patient will follow up in 6 months 04/28/2024 Tobacco abuse counseling (ICD-10 - Z71.6) Ms. Will is a 64-year-old lady with hypertension, hyperlipidemia, DM2, acid reflux, hypothyroidism and multiple sclerosis tobacco dependence is here for 6 months follow-up Diabetes mellitus with retinopathy. A1c 5.6.in October 2023 patient was given a lab slip but never did her blood work. She also does not check her blood sugars at home. She sees her hourly manager. Foot care discussed. Continue Trulicity and Metformin 1000 MG. check A1c.On the next appointment. Patient was given a new lab slip Hypertension. Blood pressure well controlled on current regimen. Continue Losartan 50 MG.we will check albumin creatinine ratio Hyperlipidemia. Last lipid panel within normal limits. Continue Atorvastatin 40 MG. Hypothyroidism. Continue Levothyroxine 25 MCG and advised to take it first thing in the morning on an empty stomach. Nicotine dependence. She is still currently smoking and cessation advised.she is willing to quit nicotine gum was given Glaucoma. She sees her hourly manager regularly.in [place] obesity exercise diet controlled and lifestyle modification was advised Dental screening. She sees dentist regularly. Breast cancer screening. She is up-to-date on her mammogram. Colon cancer screening. She had her colonoscopy done in 2018 and is on 5-[id number]-[id number]. Immunizations. She is up-to-date on her COVID vaccinations. flu vaccine will be given today diabetic foot exam she was following with Dr. Sierra he is retired and now she will be going to General health concerns discussed with patient .patient will follow up in 6 months Plan Of Treatment Pending Test Test Name Order Date Echocardiogram 04/28/2023 Electrocardiogram (EKG) 01/03/2019 Electrocardiogram (EKG) 12/16/2017 TSH 12/16/2017 TSH 06/16/2018 Comp. Metabolic Panel (14) 12/09/2017 MICROALBUMIN,URINE 12/16/2017 HEMOGLOBIN A1C 12/16/2017 HEMOGLOBIN A1C WITH EST GLUCOSE 04/24/20 22 Hemoglobin A1C 06/16/2018 Lipid Panel 12/09/2017 Xray: Chest-Standard Frontal & Lat 03/12 CHEST C- CT 10/29/2023 COVID-19 (NOVEL CORONAVIRUS), RNA PCR Hemoglobin [id number] 04/28/2024 CBC With Differential/Platelet-[id number] Albumin/Creatinine Ratio,Urine-[id number] TSH+Free [id number] 04/28/2024 Comp. Metabolic Panel [id number] 2023 Future Test Test Name Order Date COMPREHENSIVE METABOLIC PANEL 09/30/2021 HEMOGLOBIN A1C WITH EST GLUCOSE 10/01/19 22 LIPID PANEL 09/30/2021 MICROALBUMIN, URINE 09/30/2021 TSH WITH REFLEX TO FT4 09/30/2021 HEMOGLOBIN A1C WITH EST GLUCOSE 01/03/20 22 T4, FREE 01/02/2022 TSH WITH REFLEX TO FT4 01/02/2022 HEMOGLOBIN A1C WITH EST GLUCOSE 02/05/20 22 COMPREHENSIVE METABOLIC PANEL 04/24/2022 HEMOGLOBIN A1C WITH EST GLUCOSE 04/24/20 LIPID PANEL 04/24/2022 MICROALBUMIN, URINE 04/24/2022 T4, FREE 04/24/2022 TSH WITH REFLEX TO FT4 04/24/2022 HEMOGLOBIN A1C WITH EST GLUCOSE 10/15/19 TSH WITH REFLEX TO FT4 10/14/2022 HEMOGLOBIN A1C WITH EST GLUCOSE 04/28/20 Hemoglobin [id number] 10/29/2023 Albumin/Creatinine Ratio,Urine-[id number] TSH+Free [id number] 10/29/2023 Lipid Panel-[id number] 10/29/2023 Comp. Metabolic Panel [id number] 2023 Next Appt Details Provider Name:Damon Maldonado, 0 10/27/2024 08:00:00 AM, [address] [place] [address], [phone], Insurance Providers Payer Name Payer Address Payer Phone Subscriber Number Group Number Insured Name Patient Relationship to Insured Coverage Start Date Coverage End Date [facility] [address] [place] [address] [phone] [id number] Wendy Will Self - patient is the insured Medical (General) History Medical History History ICD Code hypertension, benign hyperlipidemia acid reflux Diabetes mellitus type 2 Class I obesity Hypothyroidism Multiple sclerosis see Dr Lowry Personal history of COVID-19 Mild non proliferative diabetic retinopa thy/diabetic macular edema Surgical History Surgery Date(Month/Year) wrist surgery right foot surgery tonsillectomy tubal ligation right cataract surgery by Dr. Quintanilla 10/22 22 left cataract surgery by Dr. Quintanilla 2 Hospitalization History Reason Date(Month/Year)
--- OUTSIDE RECORDS SUMMARY | 2024-08-29 14:44 | XMS_ITS ---
Author [facility] Address [address] [place] [address] Care Team Providers Care Sole Rougher Name Role Phone Christopher Rosado Primary Care Provider Shelia Barragan [phone] Encounters Encounter Location Date Provider Diagnosis [address] [address] 08/10/2024 Shelia Singer Plan Of Treatment Next Appt Details Provider Name:Shelia alvarez, 10/12/2024 09:00:00 AM, [address] [place] [address], [place], [address], Progress Notes * Wendy AVENDANODOB:1960 (64 yo F)Acc No.[id number]:08/10/2024 Progress Note Patient:?Wendy AVENDANO Provider:?Shelia Singer DPM :1960???Age:64 Y???Sex:Female D ate:08/10/2024 Address:[address] [place] [address] Pcp:Christopher Rosado Subjective: * Chief Complaints: * ??? * Medical History:? Objective: * Vitals:? Assessment: Plan: * Treatment: * Images: * The named appointment provid er may or may not be the originator of this progress note, and it is not deemed complete until electronically signed by the appointment provider. Sign off status: Pending * Provider:?Shelia Singer DPM Date:?12/2024 Generated for Laurent solomon/Quincy/Ryan on:?08/29/2024 02:43 PM EST
--- OUTSIDE RECORDS SUMMARY | 2024-08-29 14:44 | XMS_ITS ---
Author Organization [facility] Address [address] [place] [address] Care Team Providers Care Chamber Walker Name Role Phone Carlos Aagustin Christopher Primary Care Provider Shelia Barragan Unavailable [phone] Allergies Allergen (clinical drug ingredient) Drug/Non Drug Allergy documented on EMR Reaction Allergy Type Onset Date Status povidone-iodine Betadine sore throat, swelling Drug Allergy Active Bee Sting Unknown Allergy Active Shellfish (FN) Shellfish-derived Products Unknown Drug Allergy Active REASON FOR VISIT At Risk Footcare Medications Medication SIG (Take, Route, Frequency, Duration) Notes Start Date End Date Status Doxycycline (Rosacea) Not-Taking Extra Depth Diabetic Shoes with 3 Pair Custom heat-molded multi-density innersoles for 1 year Dx: Not-Taking glipiZIDE 5 MG 1 tablet Oral Once a day Not-Taking Januvia Not-Taking Levothyroxine Sodium 25 MCG 1 tablet in the morning on an empty stomach Orally Once a day for 30 day(s) Active Levothyroxine Sodium 150 MCG Oral for 90 Active Levothyroxine Sodium 25 MCG 1 tablet in the morning on an empty stomach Orally Once a day Active Losartan Potassium 50 MG Oral for 90 Active metFORMIN HCl 1000 MG Oral for 90 Active Tysabri Active Trulicity once a week inj Active Aspirin Low Dose 81 MG Oral for 90 Active Atorvastatin Calcium 40 MG Oral for 90 Active Esomeprazole Magnesium 40 MG Oral for 90 Active Invokana 300 MG Oral for 90 Ac tive Extra Depth Diabetic Shoes with 3 Pair Custom heat-molded multi-density innersoles for 1 year Dx: Active Doxycycline Active Minoxidil Active Social History Tobacco Use: Social History Observation Description Date Details (start date - stop date) Current Smoker NA - NA Tobacco use other than smoking: Question Answer Notes Are you an other tobacco user? No Tobacco Control (Standard) Question Answer Notes Tobacco use: Current smoker How often do you smoke cigarettes? Every day How many cigarettes a day do you smoke? 11-20 How soon after you wake up d o you smoke your first cigarette? Within 5 minutes Are you interested in quitting? Thinking about q uitting Vital Signs Height 5ft4in in 08/11/2024 Weight 188 lbs 08/11/2024 BMI 32.27 kg/m2 08/11/2024 Blood pressure systolic 120 mm Hg 08/11/19 25 Blood pressure diastolic 70 mm Hg 025 Encounters Encounter Location Date Provider Diagnosis [facility] [address] [place] [address] 08/11/2024 Shelia Singer Type 2 diabetes mellitus with diabetic polyneuropathy E11.42 Assessments Encounter Date Diagnosis (ICD Code) Assessment Notes Treatment Notes Treatment Clinical Notes Section Notes 08/11/2024 Type 2 diabetes mellitus with diabetic polyneuropathy (ICD-10 - E11.42) Plan Of Treatment Next Appt Details Follow Up: 2 Months, Reason: Provider Name:Shelia alvarez, 10/12/2024 09:00:00 AM, [address] [facility], [place], [address], Procedure Notes * Category Sub-Category Detail Notes Keratoma Treatment Parring or Cutting o f Benign Hyperkeratotic Lesion(s) (-57) More than 4 Lesions - Due to the at risk nature of the patients medical condition as documented in the exam findings, performance of this keratoderma treatment is medically necessary as its management by an unskilled/untrained nonprofessional would put this patients foot and overall health at risk. Therefore, the benign hyperkeratotic lesions, ( 5 ) in total, locations as stated and described in the exam, were pared, and/or cut utilizing a sterile 15 blade, tissue nippers, and/or power [email or web address] instrumentation - [id number] Progress Notes * Wendy AVENDANODOLashawn:1960 (64 yo F)Acc No.[id number]:08/11/2024 Progress Note Patient:?Wendy AVENDANO Provider:?Shelia Singer DPM :1960???Age:64 Y???Sex:Female D ate:08/11/2024 Address:[address] [place], [place] [id number] Pcp:Christopher Rosado Subjective: * Chief Complaints: * ???At Risk Footcare * HPI: ???At Risk footcare:?Pt States Last PCP Visit:?Date?04/12/2024 * ROS:?General/Constitutional:?Nausea?denies, denies.?Vomiting?denies, denies.?Hunger Thirst?denies, denies.?Loss appetite?denies, denies.?Chills?denies, denies.?Fatigue?denies, denies.?Fever?denies, denies.?Night Sweats denies, denies.?Unexplained weight loss?denies, denies.?Unexplained weight gain?denies, denies.?HEENTM:?Dentures?denies, denies.?Dizziness?denies, denies.?Glasses/contacts?denies, denies.?Retinopathy?denies, denies.?Blurred/double vision?denies, denies.?TMJ?denies, denies.?Discharge/drainage?denies, denies.?Implants?denies, denies.?Sore throat?denies, denies.?Dental implants?denies, denies.?Hard of hearing ?denies, denies.?Difficulty chewing/swallowing/speaking?denies, denies.?Nose bleeds?denies, denies.?Sore mouth?denies, denies.?Respiratory:?On Oxygen?denies, denies.?Pneumonia/pleurisy?admits, admits.?Bronchitis?denies, denies.?Emphysema?denies, denies.?Coughing?admits, admits.?Cough blood?denies, denies.?Shortness of breath?admits, admits.?Wheezing?denies, denies.?Cardiovascular:?Pacemaker?denies, denies.?MVP?denies, denies.?WPW?denies, denies.?CHF?denies, denies.?Heart attack?denies, denies.?Septal defect?denies, denies.?Rapid beat?denies, denies.?Chest pain ?denies, denies.?Atrial Fib.?denies, denies.?Murmur/Palpitations?denies, denies.?Gastrointestinal:?Hemorrhoids?denies, denies.?Stomach/Abdominal pain?denies, denies.?Dark blood stool?denies, denies.?Irritable bowel ?denies, denies.?Constipation?denies, denies.?Diarrhea?denies, denies.?Hematology:?Swelling?denies, denies.?Clots?denies, denies.?Varicose Veins?denies, denies.?Bruising?denies, denies.?Bleeding problem?denies, denies.?Genitourinary:?Blood urine?denies, denies.?Frequent/Painfu/urination/bladder control?denies, denies.?Kidney stones?denies, denies.?Infection (UTI)?denies, denies.?Nephropathy?denies, denies.?sex trans dis (STD)?denies, denies.?Prostate?denies, denies.?Musculoskeletal:?Hammertoes?denies, denies.?Bunions?denies, denies.?Back Pain?denies, denies.?Muscle Cramps/ Resting?denies, denies.?Muscle cramps / walking?denies, denies.?Generalized aches and pains?denies, denies.?Weakness?denies, denies.?Integ.:?Ryan?denies, denies.?Scars?denies, denies.?Corns/calluses?admits, admits.?Ingrown nails?denies, denies.?Painful nails?admits,admits.?Open Sores?denies, denies.?Rashes?denies, denies.?Neurologic:?Difficulty sleeping?admits, admits.?Brain disorder?denies, denies.?Numbness?denies, denies.?Balance trouble?admits, admits.?Confusion?denies, denies.?Fainting/blackouts?denies, denies.?Tingling?denies, denies.?Tremors?denies, denies.? * Medical History:? * Surgical History:?foot surge ry right 2004Hand Surgery right 1984cataract surgery 11/2021tubes, glaucoma 2021lasik 2021eye surgery, glaucoma issue 02/19/23 * Hospitalization/Major Diagno stic Procedure:?Denies Past Hospitalization * Family History:?Mother: pedro armendariz, diagnosed with Other malignant neoplasm of unspecified site, Diabetic - NIDDM, Family history of arthritis.?Father: alive.?Son(s): alive, diagnosed with Diabetic - NIDDM.?Paternal Grand Mother: diagnosed with Unspecified cerebral artery occlusion with cerebral infarction.?Maternal Grand Mother: diagnosed with Unspecified cerebral artery occlusion with cerebral infarction.? * Social History:?Tobacco Use:?Tobacco use other than smoking?Are you an other tobacco user??No ?Tobacco Control (Standard)?Tobacco use:?Current smoker ?How often do you smoke cigarettes??Every day ?How many cigarettes a day do you smoke??11-20 ?How soon after you wake up do you smoke your first cigarette??Within 5 minutes ?Are you interested in quitting??Thinking about quitting ???Miscellaneous:?Caffeine: yes, 4 cups per day. ?Children: yes, Two. ?Exercise: yes, walking. ?Marital status: single. 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 * Medications:?TakingExtra Dep th Diabetic Shoes with 3 Pair Custom heat-molded multi-density innersoles for 1 year Dx: Doxycycline Minoxidil Trulicity , Notes to Pharmacist: once a week injAspirin Low Dose 81 MG Tablet Delayed Release Oral Atorvastatin Calcium 40 MG Tablet Oral Esomeprazole Magnesium 40 MG Capsule Delayed Release Oral Invokana 300 MG Tablet Oral Levothyroxine Sodium 150 MCG Tablet Oral Levothyroxine Sodium 25 MCG Tablet 1 tablet in the morning on an empty stomach Orally Once a day Losartan Potassium 50 MG Tablet Oral metFORMIN HCl 1000 MG Tablet Oral Tysabri Levothyroxine Sodium 25 MCG Tablet 1 tablet in the morning on an empty stomach Orally Once a day Taking Extra Depth Diabetic Shoes with 3 Pair Custom heat-molded multi-density innersoles for 1 year Dx: Taking Doxycycline Taking Minoxidil Taking Berny , Notes to Pharmacist: once a week injTaking Aspirin Low Dose 81 MG Tablet Delayed Release Oral Taking Atorvastatin Calcium 40 MG Tablet Oral Taking Esomeprazole Magnesium 40 MG Capsule Delayed Release Oral Taking Invokana 300 MG Tablet Oral Taking Levothyroxine Sodium 150 MCG Tablet Oral Taking Levothyroxine Sodium 25 MCG Tablet 1 tablet in the morning on an empty stomach Orally Once a day Taking Losartan Potassium 50 MG Tablet Oral Taking metFORMIN HCl 1000 MG Tablet Oral Taking Tysabri Taking Levothyroxine Sodium 25 MCG Tablet 1 tablet in the morning on an empty stomach Orally Once a day Not-Taking/PRNDoxycycline (Rosacea) Extra Depth Diabetic Shoes with 3 Pair Custom heat-molded multi-density innersoles for 1 year Dx: glipiZIDE 5 MG Tablet 1 tablet Oral Once a day Januvia Medication List reviewed and reconciled with the patientNot-Taking/PRN Doxycycline (Rosacea) Not-Taking/PRN Extra Depth Diabetic Shoes with 3 Pair Custom heat-molded multi-density innersoles for 1 year Dx: Not-Taking/PRN glipiZIDE 5 MG Tablet 1 tablet Oral Once a day Not- Taking/PRN Januvia Medication List reviewed and reconciled with the patient * Allergies:?Betadine: sore th roat, swellingShellfish-derived ProductsBee Stingyes[Allergies Verified] Objective: * Vitals:?Ht: 5ft4in, Wt:188, BMI:32.27, Shoe size: 8.5-10, BP:120/70mm Hg, BS: not taken, Ht-cm: 162.56 cm, Wt-k.28 kg. * ???Past Orders: ???Lab:HEMOGLOBIN A1C (GLYCO HEMOGLOBIN) (Order Date - 06/04/2024) (Collection Date & Time - 06/04/2024 10:50 AM) ? Value Reference Range ?HEMOGLOBIN A1C % (HH) 5.0 * Examination: ???Ophthalmology Referral: ?DIABETES EYE EXAM?Neurological: ?SENSORY:?Neurological exam demonstrates reduced sharp/dull pin prick discrimination reduced light touch sensation reduced vibration sensation reduced proprioception sensation in a stocking fashion 5.07 monofilament test performed at plantar aspects of 5 varied sites per foot shows sensation plantar aspects absent at Forefoot B/L.?Dermatologic: ?SKIN FINDINGS:?Skin exam reveals Keratotic lesion(s) located at, Plantar, IPJ, TA, T5, SUB MTH (s), 5, B/L?, SUB MTH (s), 2, Right.? Assessment: * Assessment: 1.?Type 2 diabetes mellitus with diabetic polyneuropathy - E11.42 (Primary)??? Plan: * Treatment: * Procedures:?Keratoma Treatment:?Parring or Cutting of Benign Hyperkeratotic Lesion(s)?(-57) More than 4 Lesions - Due to the at risk nature of the patients medical condition as documented in the exam findings, performance of this keratoderma treatment is medically necessary as its management by an unskilled/untrained nonprofessional would put this patients foot and overall health at risk. Therefore, the benign hyperkeratotic lesions, ( 5 ) in total, locations as stated and described in the exam, were pared, and/or cut utilizing a sterile 15 blade, tissue nippers, and/or power [email or web address] instrumentation - [id number].? * Procedure Codes:?86963 TRIM SKIN LESIONS, OVER 4, Modifiers: GY * Preventive Medicine:? ??Counseling:?Tobacco use:?Type of Tobacco Use Cessation Counseling provided?Smoking effects education ?Patient counseled on the dangers of smoking and urged to quit:?08/11/2024 * Follow Up:?2 Months * Images: * Sign off status: Completed true * Provider:?Shelia Singer DPM Date:?01/2025 Generated for Laurent solomon/Quincy/Ryan on:?08/29/2024 02:44 PM EST History and Physical Notes * HPI (History of Present Illness) Category Sub-Category Detail Notes Category Not es At Risk footcare Pt States Last PCP Visit: Date: 4 Examination Category Sub-Category Detail Notes Category Not es Neurological SENSORY: Neurological exa m demonstrates reduced sharp/dull pin prick discrimination reduced light touch sensation reduced vibration sensation reduced proprioception sensation in a stocking fashion 5.07 monofilament test performed at plantar aspects of 5 varied sites per foot shows sensation plantar aspects absent at Forefoot B/L Dermatologic SKIN FINDINGS: Skin exam reveal s Keratotic lesion(s) located at, Plantar, IPJ, TA, T5, SUB MTH (s), 5, B/L , SUB MTH (s), 2, Right Ophthalmology Referral DIABETES EYE EXAM Procedu re Performed:: Yes ?Date of Exam Performed: 02/03/2024 Findings of Diabetic Eye Exam:: retinopa thy
--- OUTSIDE RECORDS SUMMARY | 2024-08-29 14:44 | XMS_ITS ---
Author Organization [facility] Address [address] [place] [address] Care Team Providers Care Monitoring Analyst Name Role Phone CRISTINA BELLAMY Primary Care Provider [phone] RE[address]ON FOR V[address] Bellamy Encounters Encounter Location Date Provider Diagnosis [address] [place] [address] 10/28/2023 CRISTINA BELLAMY Plan Of Treatment Next Appt Details Provider Name:Damon Maldonado, 0 10/27/2024 08:00:00 AM, [address] [facility] [address], [place], [address], Progress Notes * Wendy AVENDANODOB:1960 (63 yo F)Acc No.[id number]:10/28/2023 Patient:?Wendy AVENDANO :1960???Age:63 Y???Sex:Female Address:[address] [place] [address] * true * Date:? Generated for Printi neha/Quincy/eTransmitting on:?08/29/2024 02:44 PM EST
--- OUTSIDE RECORDS SUMMARY | 2024-08-29 14:44 | XMS_ITS ---
Author Organization [employer] Address [address] [place] [address] Care Team Providers Care Investigative Reporter Name Role Phone CRISTINA BELLAMY Primary Care Provider [phone] BuckyhaydenDamon Unavailable [phone] Allergies Allergen (clinical drug ingredient) Drug/Non Drug Allergy documented on EMR Reaction Allergy Type Onset Date Status bee sting (uncoded) Unknown Allergy Active Shellfish (FN) Shellfish-derived Products Unknown Drug Allergy Active REASON FOR VISIT 6 month f/u Medications Medication SIG (Take, Route, Frequency, Duration) Notes Start Date End Date Status Doxycycline Hyclate 20 MG 20 capsule Orally Twice a day Derm for Alopecia 10/29/2023 Active Nicotine Polacrilex 4 MG 1 piece chew for 30 minutes as needed Mouth/Throat every 8 hrs for 30 days 04/28/2024 Active Januvia 50 MG TAKE 1 TABLET BY MOUTH EVERY DAY for 90 Not-Taking glipiZIDE 5 MG TAKE 1 TABLET BY MOUth Once a day for 90 Not-Taking Pneumovax 23 25 MCG/0.5ML as directed Injection 1 for 365 days 07/23/2021 Not-Taking Doxycycline Not-Taki ng hydrOXYzine HCl 25 MG TAKE 1 TABLET BY MOUTH EVERY 8 HOURS NEEDED FOR 30 DAYS for 90 Not-Taking Benzonatate 100 MG 1 capsule as needed Orally Three times a day for 7 days 07/08/2023 Not-Taking Aspirin 81 MG TAKE 1 TABLET BY MOUTH EVERY DAY for 90 Active Shingrix 50 MCG/0.5ML as directed Intramuscular 1 for 365 days 07/23/2021 Not-Taking Invokana 100 MG TAKE 1 TABLET BY MOUTH EVERY DAY FOR 90 DAYS for 90 Active Levothyroxine Sodium 25 MCG TAKE 1 [...] A DAY WITH MEALS for 90 Active Levothyroxine Sodium 150 MCG TAKE 1 TABLET BY MOUTH EVERY DAY for 90 Active Esomeprazole Magnesium 40 MG TAKE 1 CAPSULE BY MOUTH TWICE A DAY for 90 Active Tysabri 300 MG/15ML as directed Intravenous q 28 days Active Losartan Potassium 50 MG TAKE 1 TABLET BY MOUTH EVERY DAY for 90 Active Fluticasone Propionate 50 MCG/ACT SPRAY 1 SPRAY INTO EACH NOSTRIL EVERY DAY FOR 30 DAYS as needed for 90 days Active Immunizations Vaccine Route Administration Date Status Comme nts Flublok 92600 IM Intramuscular 04/28/2024 Administered Social History Tobacco Use: Social History [...] Section Notes: quit smoking July 09, 2022 Problems Problem Type SNOMED Code ICD Code Onset Dates Problem Status W/U Status Risk Notes Problem Tobacco dependence (48302664) Tobacco dependence (F17.200) Active confirmed Vital Signs Oximetry 98 % 04/28/2024 Heart Rate 84 /min 04/28/2024 Blood pressure systolic 102 mm Hg 04/28/20 24 Blood pressure diastolic 60 mm Hg 024 Weight 186.4 lbs 04/28/2024 BMI 31.39 kg/m2 04/28/2024 Height 64.61 in 04/28/2024 Encounters Encounter Location Date Provider Diagnosis [facility] [address] [place] [address] 04/28/2024 Damon Maldonado Diabetes mellitus du e to underlying condition with unspecified diabetic retinopathy with macular edema E08.311 ; Essential (primary) hypertension I10 ; Hyperlipidemia, unspecified E78.5 ; Hypothyroidism, unspecified E03.9 ; Tobacco dependence F17.200 ; Encounter for immunization Z23 and Tobacco abuse counseling Z71.6 Assessments Encounter Date Diagnosis (ICD Code) Assessment Notes Treatment Notes Treatment Clinical Notes Section Notes 04/28/2024 Diabetes mellitus due to underlying condition with unspecified diabetic retinopathy with macular edema (ICD-10 - E08.311) Ms. Avendano is a 64-year-old lady with hypertension, hyperlipidemia, DM2, acid reflux, hypothyroidism and multiple sclerosis tobacco dependence is here for 6 months follow-up Diabetes mellitus with retinopathy. A1c 5.6.in October 2023 patient was given a lab slip but never did her blood work. She also does not check her blood sugars at home. She sees her shank inspector. Foot care discussed. Continue Trulicity and Metformin [...] gum was given Glaucoma. She sees her shank inspector regularly.in [place] obesity exercise diet controlled and lifestyle modification was advised Dental screening. She sees dentist regularly. Breast cancer screening. She is up-to-date on her mammogram. Colon cancer screening. She had her colonoscopy done in 2018 and is on [id number]-[id number]. Immunizations. She is up-to-date on her COVID vaccinations. flu vaccine will be given today diabetic foot exam she was following with Dr. Sierra he is retired and now she will be going to General health concerns discussed with patient .patient will follow up in 6 months 04/28/2024 Essential (primary) hypertension (ICD-10 - I10) Ms. Avendano is a 64-year-old lady with hypertension, hyperlipidemia, DM2, acid reflux, hypothyroidism and multiple sclerosis tobacco dependence is here for 6 months follow-up Diabetes mellitus with retinopathy. A1c 5.6.in October 2023 patient was given a lab slip but never did her blood work. She also does not check her blood sugars at home. She sees her shank inspector. Foot care discussed. Continue Trulicity and Metformin [...] gum was given Glaucoma. She sees her shank inspector regularly.in [place] obesity exercise diet controlled and lifestyle modification was advised Dental screening. She sees dentist regularly. Breast cancer screening. She is up-to-date on her mammogram. Colon cancer screening. She had her colonoscopy done in 2018 and is on 5-[id number]-dprqy. Immunizations. She is up-to-date on her COVID vaccinations. flu vaccine will be given today diabetic foot exam she was following with Dr. Sierra he is retired and now she will be going to General health concerns discussed with patient .patient will follow up in 6 months 04/28/2024 Hyperlipidemia, unspecified (ICD-10 - E78.5) Ms. Avendano is a 64-year-old lady with hypertension, hyperlipidemia, DM2, acid reflux, hypothyroidism and multiple sclerosis tobacco dependence is here for 6 months follow-up Diabetes mellitus with retinopathy. A1c 5.6.in October 2023 patient was given a lab slip but never did her blood work. She also does not check her blood sugars at home. She sees her shank inspector. Foot care discussed. Continue Trulicity and Metformin [...] gum was given Glaucoma. She sees her shank inspector regularly.in [place] obesity exercise diet controlled and lifestyle modification was advised Dental screening. She sees dentist regularly. Breast cancer screening. She is up-to-date on her mammogram. Colon cancer screening. She had her colonoscopy done in 2018 and is on [id number]-enko-ievrv. Immunizations. She is up-to-date on her COVID vaccinations. flu vaccine will be given today diabetic foot exam she was following with Dr. Sierra he is retired and now she will be going to General health concerns discussed with patient .patient will follow up in 6 months 04/28/2024 Hypothyroidism, unspecified (ICD-10 - E03.9) Ms. Avendano is a 64-year-old lady with hypertension, hyperlipidemia, DM2, acid reflux, hypothyroidism and multiple sclerosis tobacco dependence is here for 6 months follow-up Diabetes mellitus with retinopathy. A1c 5.6.in October 2023 patient was given a lab slip but never did her blood work. She also does not check her blood sugars at home. She sees her shank inspector. Foot care discussed. Continue Trulicity and Metformin [...] gum was given Glaucoma. She sees her shank inspector regularly.in [place] obesity exercise diet controlled and lifestyle modification was advised Dental screening. She sees dentist regularly. Breast cancer screening. She is up-to-date on her mammogram. Colon cancer screening. She had her colonoscopy done in 2018 and is on 9-[id number]. Immunizations. She is up-to-date on her COVID vaccinations. flu vaccine will be given today diabetic foot exam she was following with Dr. Sierra he is retired and now she will be going to General health concerns discussed with patient .patient will follow up in 6 months 04/28/2024 Tobacco dependence (ICD-10 - F17.200) Ms. Avendano is a 64-year-old lady with hypertension, hyperlipidemia, DM2, acid reflux, hypothyroidism and multiple sclerosis tobacco dependence is here for 6 months follow-up Diabetes mellitus with retinopathy. A1c 5.6.in October 2023 patient was given a lab slip but never did her blood work. She also does not check her blood sugars at home. She sees her shank inspector. Foot care discussed. Continue Trulicity and Metformin [...] gum was given Glaucoma. She sees her shank inspector regularly.in [place] obesity exercise diet controlled and lifestyle modification was advised Dental screening. She sees dentist regularly. Breast cancer screening. She is up-to-date on her mammogram. Colon cancer screening. She had her colonoscopy done in 2018 and is on 5-glif-kfrmi. Immunizations. She is up-to-date on her COVID vaccinations. flu vaccine will be given today diabetic foot exam she was following with Dr. Sierra he is retired and now she will be going to General health concerns discussed with patient .patient will follow up in 6 months 04/28/2024 Encounter for immunization (ICD-10 - Z23) Ms. Avendano is a 64-year-old lady with hypertension, hyperlipidemia, DM2, acid reflux, hypothyroidism and multiple sclerosis tobacco dependence is here for 6 months follow-up Diabetes mellitus with retinopathy. A1c 5.6.in October 2023 patient was given a lab slip but never did her blood work. She also does not check her blood sugars at home. She sees her shank inspector. Foot care discussed. Continue Trulicity and Metformin [...] gum was given Glaucoma. She sees her shank inspector regularly.in [place] obesity exercise diet controlled and lifestyle modification was advised Dental screening. She sees dentist regularly. Breast cancer screening. She is up-to-date on her mammogram. Colon cancer screening. She had her colonoscopy done in 2018 and is on 8-[id number]-[id number]. Immunizations. She is up-to-date on her COVID vaccinations. flu vaccine will be given today diabetic foot exam she was following with Dr. Sierra he is retired and now she will be going to General health concerns discussed with patient .patient will follow up in 6 months 04/28/2024 Tobacco abuse counseling (ICD-10 - Z71.6) Ms. Avendano is a 64-year-old lady with hypertension, hyperlipidemia, DM2, acid reflux, hypothyroidism and multiple sclerosis tobacco dependence is here for 6 months follow-up Diabetes mellitus with retinopathy. A1c 5.6.in October 2023 patient was given a lab slip but never did her blood work. She also does not check her blood sugars at home. She sees her shank inspector. Foot care discussed. Continue Trulicity and Metformin [...] gum was given Glaucoma. She sees her shank inspector regularly.in [place] obesity exercise diet controlled and lifestyle modification was advised Dental screening. She sees dentist regularly. Breast cancer screening. She is up-to-date on her mammogram. Colon cancer screening. She had her colonoscopy done in 2018 and is on 7-ekof-esmrz. Immunizations. She is up-to-date on her COVID vaccinations. flu vaccine will be given today diabetic foot exam she was following with Dr. Sierra he is retired and now she will be going to General health concerns discussed with patient .patient will follow up in 6 months Plan Of Treatment Medication Medication Name Sig Start Date Stop Date Notes Nicotine Polacrilex 4 MG 1 piece chew fo r 30 minutes as needed Mouth/Throat every 8 hrs for 30 days 04/28/2024 Pending Test Test Name Order Date Hemoglobin [id number] 04/28/2024 CBC With Differential/Platelet-[id number] Albumin/Creatinine Ratio,Urine-[id number] TSH+Free [id number] 04/28/2024 Comp. Metabolic Panel [id number] 2023 Next Appt Details Follow Up: 6 Months f/.Joey beebe: Provider Name:Damon Lawlerhayden, 0 10/27/2024 08:00:00 AM, [address] [place] [address], [id number], Progress Notes * Wendy AVENDANODOB:1960 (64 yo F)Acc No.[id number]:04/28/2024 Progress Notes Patient:Wendy VASQUEZ Provider:?Damon Lawlerhayden, :1960???Age:64 Y???Sex:Female D ate:04/28/2024 Address:[address] [place], [place] [id number] Pcp:CRISTINA BELLAMY Subjective: * Chief Complaints: * ???6 month f/u * HPI: ???Internal Medicine:?Ms. Avendano is a 64-year-old lady with hypertension, hyperlipidemia, DM2, acid reflux, hypothyroidism and multiple sclerosis? without any deficit, tobacco abuse and dependence is here today for a follow-up appointment.? Patient has not done her labs.? She is also not checking her blood sugars but compliant with all medications.? She continues to smoke. She is still smoking half a pack a day.She reports she has gained 10 pounds and she is not exercising and not watching her diet. She does not appear anxious or depressed. She sleeps well, appetite is good. No GI or symptoms. She denies any other active issues or concerns. * ROS:?General/Constitutional:?Overall health?Good.?Change in appetite?denies.?Chills?denies.?Fever?denies.?Night sweats?denies.?Sleep disturbance?denies.?Weight gain?denies.?Weight loss?denies.?Neurologic:?Difficulty speaking?denies.?Dizziness?denies.?Gait abnormality?denies.?Headache?denies.?Loss of strength?denies.?Memory loss?denies.?Seizures?denies.?Tingling/Numbness?denies .?Ophthalmologic:?Blurred vision?denies.?Discharge?denies.?Dry eye?denies.?Red eye?denies.?ENT:?Change in Voice?Denies.?Cold Symptoms?Denies.?Cough?Denies.?Dizziness?Denies.?Nasal Congestion?Denies.?Otalgia?Denies.?postnasal [...] Dr. Quintanilla 11/2021 * Hospitalization/Major Diagno stic Procedure:? * Social History:?Tobacco Use:?Tobacco Use/Smoking?Are you a?former smoker ???Drugs/Alcohol:?Drugs?Have you used drugs other than those for medical reasons in the past 12 months??No ?Alcohol Screen (Audit-C)?Did you have a drink containing [...] July 09, 2022. * Medications:?TakingDoxycycli ne Hyclate 20 MG Tablet 20 capsule Orally Twice a day , Notes to Pharmacist: Derm for AlopeciaTysabri 300 MG/15ML Concentrate as directed Intravenous q 28 days Esomeprazole Magnesium 40 MG Capsule Delayed Release [...] TAKE 1 TABLET BY MOUTH EVERY DAY Trulicity 0.75 MG/0.5ML Solution Pen-injector INJECT THE CONTENTS OF 1 PEN SUBCUTANEOUSLY ONCE WEEKLY Levothyroxine Sodium 25 MCG Tablet TAKE 1 TABLET BY MOUTH EVERY DAY FOR 90 DAYS Invokana 100 MG Tablet TAKE 1 TABLET BY MOUTH EVERY DAY FOR 90 DAYS Aspirin 81 MG Tablet Delayed Release TAKE 1 TABLET BY MOUTH EVERY DAY Taking Doxycycline Hyclate 20 MG Tablet 20 capsule Orally Twice a day , Notes to Pharmacist: Derm for AlopeciaTaking Tysabri 300 MG/15ML Concentrate as directed Intravenous q 28 days Taking Esomeprazole Magnesium 40 MG Capsule Delayed [...] 1 TABLET BY MOUTH EVERY DAY Taking Trulicity 0.75 MG/0.5ML Solution Pen-injector INJECT THE CONTENTS OF 1 PEN SUBCUTANEOUSLY ONCE WEEKLY Taking Levothyroxine Sodium 25 MCG Tablet TAKE 1 TABLET BY MOUTH EVERY DAY FOR 90 DAYS Taking Invokana 100 MG Tablet TAKE 1 TABLET BY MOUTH EVERY DAY FOR 90 DAYS Taking Aspirin 81 MG Tablet Delayed Release [...] MCG/0.5ML Suspension Reconstituted as directed Intramuscular 1 Not- Taking Pneumovax 23 25 MCG/0.5ML Injectable as directed Injection 1 Not-Taking glipiZIDE 5 MG Tablet TAKE 1 TABLET BY MOUth Once a day Not-Taking Januvia 50 MG Tablet TAKE 1 TABLET BY MOUTH EVERY DAY Medication List reviewed and reconciled with the patient * Allergies:?bee sting: Allerg yShellfish-derived Products: Allergyno[Allergies Verified] Objective: * Vitals:?Oxygen sat %:98%, HR :84/min, BP:102/60mm Hg, Wt:186.4lbs, BMI:31.39Index, Ht: 64.61 in. * ???Past Orders: ???Imaging:Denzel Screening Dig ital (Order Date - 03/13/2024) (Performed Date - 03/13/2024) * Examination: ???General Examination: ?Psychiatry?Normal.?GENERAL APPEARANCE:?Well developed, well nourished, in no acute distress.?MUSCULOSKELETAL:?Normal.?HEAD:?Normocephalic, atraumatic.?EYES:?Pupils equal, round, reactive to light and accommodation, sclera non-icteric.?EARS:?, normal.?ORAL CAVITY:?Normal.?THROAT:?Clear.?OROPHARYNX?Normal.?SINUSES?Normal.?NECK/THYROID:?Neck supple, full range of motion, no cervical lymphadenopathy.?SKIN:?Warm and dry, no suspicious lesions..?HEART:?Normal.?LUNGS:?normal .?BREASTS:?__.?ABDOMEN:?Soft, nontender, nondistended, bowel sounds present, normal.?EXTREMITIES:?Normal.?PERIPHERAL PULSES:?Normal.?NEUROLOGIC:?Nonfocal,? appropriate?motor strength normal upper and lower extremities, sensory exam intact.?FEMALE GENITOURINARY:?__.?MALE GENITOURINARY:?__.?PODIATRIC:?NORMAL, , BILATERALLY.?Onion Farmer? .? Assessment: * Assessment: 1.?Diabetes mellitus due to underlying condition with unspecified diabetic retinopathy with macular edema - E08.311???2.?Essential (primary) hypertension - I10???3.?Hyperlipidemia, unspecified - E78.5???4.?Hypothyroidism, unspecified - E03.9???5.?Tobacco dependence - F17.200???6.?Encounter for immunization - Z23???7.?Tobacco abuse counseling - Z71.6??? Ms. Avendano is a 64-year-old lady with hypertension, hyperlipidemia, DM2, acid reflux, hypothyroidism and multiple sclerosis tobacco dependence is here for 6 months follow-up Diabetes mellitus with retinopathy. A1c 5.6.in October 2023 patient was given a lab slip but never did her blood work.? She also does not check her blood sugars at home. ?She sees her shank inspector. Foot care discussed. Continue Trulicity and Metformin 1000 MG. check A1c.On the next appointment.? Patient was given a new lab slip [...] gum was given Glaucoma. She sees her shank inspector regularly.in [place] obesity exercise diet controlled and lifestyle modification was advised Dental screening. She sees dentist regularly. Breast cancer screening. She is up-to-date on her mammogram. Colon cancer screening. She had her colonoscopy done in 2018 and is on 0-[id number]-[id number]. Immunizations. She is up-to-date on her COVID vaccinations. flu vaccine will be given today diabetic foot exam she was following with Dr. Sierra he is retired and now she will be going to ? General health concerns discussed with patient .patient will follow up in 6 months Plan: * Treatment: 2.?Tobacco dependence? Start Nicotine Polacrilex Gum, 4 MG, 1 piece chew for 30 minutes as needed, Mouth/Throat, every 8 hrs, 30 days, 90, Refills 3.?? * Immunizations:? Flublok 34189 : 0.5 mL (Route: Intramuscular) given by Heber Pickard on Left Deltoid (Encounter for immunization) * Procedure Codes:?3078F DIAST BP < 80 MM [id number] SYST BP LT 130 MM [id number] FLUBLOK VACC RIV3 NO PRESERV * Follow Up:?6 Months f/.up * * Sign off status: Completed true * Provider:?Damon Maldonado, Date:?04/28/2024 Generated for Laurent solomon/Quin[place]/Argenisitting on:?08/29/2024 02:44 PM EST History and Physical Notes * HPI (History of Present Illness) Category Sub-Category Detail Notes Category Not es Internal Medicine Ms. Avendano is a 64-year-old lady with hypertension, hyperlipidemia, DM2, acid reflux, hypothyroidism and multiple sclerosis without any deficit, tobacco abuse and dependence is here today for a follow-up appointment. Patient has not done her labs. She is also not checking her blood sugars but compliant with all medications. She continues to smoke. She is still smoking half a pack a day.She reports she has gained 10 pounds and she is not exercising and not watching her diet. She does not appear anxious or depressed. She sleeps well, appetite is good. No GI or symptoms. She denies any other active issues or concerns. Examination Category Sub-Category Detail Notes Category Not es General Examination GENERAL APPEARANCE: Well dev eloped, well nourished, in no acute distress HEAD: Normocephalic, atrau matic EYES: Pupils equal, round, reactive to light and accommodation, sclera non-icteric EARS: , normal THROAT: Clear NECK/THYROID: Neck supple, full ra [...] FEMALE GENITOURINARY: __ ORAL CAVITY: Normal PODIATRIC: NORMAL, , BILATERALL Y Psychiatry Normal OROPHARYNX Normal SINUSES Normal Onion Farmer
--- OUTSIDE RECORDS SUMMARY | 2024-08-29 14:44 | XMS_ITS | Clinical Summary ---
Author Organization [facility] Address [address] [place] [address] Care Team Providers Care Cardroom Worker Name Role Phone Christopher Bellamy MD Primary Care Provider [phone] Social History Tobacco Use Types Packs/Day Years Used Date Smoking Tobacco: Never Assessed Comments Unknown Sex and Gender Information Value Date Recorded Sex Assigned at Not on file Legal Sex Female 7:59 AM EST Gender Identity Not on file Sexual Orientation Not on file Plan of Treatment Upcoming Encounters Date Type Department Care Team (Late st Contact Info) Description 03/15/2025 9:30 AM EDT [facility]ointment [facility] [address] [address] Health Maintenance Due Date Last Done Comments DTaP,Tdap,and Td Vaccines (1 - Tdap) 1981 Cervical Cancer Screening: Pap Smear 1983 Pneumococcal Vaccine: 50+ Years (1 of 1 - PCV) 02/15/2012 Zoster Vaccines (1 of 2) 02/15/2012 Colorectal Cancer Screening: Colonoscopy 06/07/2022 Depression Screening 06/07/2022 HIV Screening 06/07/2022 Hepatitis C Screening 06/07/2022 Medicare Annual Wellness Visit 06/07/2022 Social Influencers of Health Screening 06/07/2022 COVID-19 Vaccine ( - season) 2024 Influenza Vaccine (#1) 2024 Breast Cancer Screening 03/13/2026 03/13/20 24, 03/10/2023, 03/04/2022, Additional history exists RSV Immunization Patients 60+ Years Old (1 - 1-dose 75+ series) 2037 HIB Vaccines Aged Out No longer eligi ble based on patient's age to complete this topic HPV Vaccines Aged Out No longer eligi ble based on patient's age to complete this topic Hepatitis A Vaccines Aged Out No long er eligible based on patient's age to complete this topic Hepatitis B Vaccines Aged Out No long er eligible based on patient's age to complete this topic IPV Vaccines Aged Out No longer eligi ble based on patient's age to complete this topic MMR Vaccines Aged Out No longer eligi ble based on patient's age to complete this topic Meningococcal ACWY Vaccine Aged Out N o longer eligible based on patient's age to complete this topic Meningococcal B Vacine Aged Out No lo nger eligible based on patient's age to complete this topic Pneumococcal Vaccine: Pediatrics (0 to 5 Years) and At-Risk Patients (6 to 64 Years) Aged Out No longer eligible based on patient's age to complete this topic RSV Immunization Patients Under 20 months Aged Out No longer eligible based on patient's age to complete this topic Varicella Vaccines Aged Out No longer eligible based on patient's age to complete this topic Procedures Procedure Name Priority Date/Time Associated Diagnosis Comments [facility] SCREENING [facility]IGITAL Routine 03/13/2024 10:24 AM EDT Encounter for screening mammogram for malignant neoplasm of breast from Last 3 Months or Most Recently Relevant to Health Maintenance Results * [facility] SCREENING [facility]IGITAL (03/13/2024 10:24 AM EDT) Anatomical Region Laterality Modality Mammography 03/13/2024 8:05 AM EDT Narrative 03/13/2024 10:24 AM EDT [facility] Diagnostic Imaging Department [address] [place] [address] Patient: ??RANJITH AVENDANO ?/Age/Sex: 1960 - 64 - F Unit#: ??[id number] ? Location/Status: ??SPDIMAM/REG CLI ? Mnemonic/Ordering Site: ??DIGSC/SPMAM Ordering Physician: ??CHRISTOPHER BELLAMY MD [facility] Screening Digital - 03/13/24 - 842 Report Status:Signed EXAM: [facility] Screening Digital EXAM DATE AND TIME: 03/13/2024 8:44 AM HISTORY: ??Screening. Right breast biopsy in 2012, pathology benign. COMPARISON: ??03/10/23, 03/04/22, 02/24/21 TECHNIQUE: Bilateral digital breast tomosynthesis was performed in the CC and MLO projections. Computer aided detection with [employer] 3D 3.1 was employed. TISSUE DENSITY: b. There are scattered areas of fibroglandular density. FINDINGS: No suspicious masses, grouped microcalcifications, or areas of architectural distortion are seen. A biopsy marker is again seen in the central right breast. Skin calcifications are present. The vascularity is unremarkable. IMPRESSION: Stable mammographic appearance of the breasts. ??No evidence of malignancy is seen. A negative mammogram in the presence of a clinically suspicious palpable abnormality does not preclude the possibility of malignancy or alter the indications for biopsy. BI-RADS: ??Category 2: Benign RECOMMENDATION(S): 1: Routine screening mammogram BILATERAL in 1 year. [facility] performed at [facility] [address] [place] [address] Dictating Physician: ??CONY ARMAS MD Electronically Signed by: ??CONY ARMAS MD Dic Date/Time: ??03/13/24 1023 Sign date/Time: ??03/13/24 1024 Procedure Note Cony Armas MD - 04/19/2024 [facility] Diagnostic Imaging Department [address] [place] [address] Patient: RANJITH AVENDANO /Age/Sex: 1960 - 64 - F Unit#: [id number] Location/Status: SPDIMAM/REG CLI Mnemonic/Ordering Site: [facility] Ordering Physician: CHRISTOPHER BELLAMY MD [facility] Screening Digital - 03/13/[address] Report Status:Signed EXAM: [facility] Screening Digital EXAM DATE AND TIME: 03/13/2024 8:44 AM HISTORY: Screening. Right breast biopsy in 2012, pathology benign. COMPARISON: 03/10/23, 03/04/22, 02/24/21 TECHNIQUE: Bilateral digital breast tomosynthesis was performed in the CCand MLO projections. Computer aided detection with [employer] 3D 3.1was employed. TISSUE DENSITY: b. There are scattered areas of fibroglandular density. FINDINGS: No suspicious masses, grouped microcalcifications, or areas ofarchitectural distortion are seen. A biopsy marker is again seen in the central rightbreast. Skin calcifications are present. The vascularity is unremarkable. IMPRESSION: Stable mammographic appearance of the breasts. No evidence of malignancyis seen. A negative mammogram in the presence of a clinically suspicious palpable abnormality does not preclude the possibility of malignancy or alter the indications for biopsy. BI-RADS: Category 2: Benign RECOMMENDATION(S): 1: Routine screening mammogram BILATERAL in 1 year. [facility] performed at [facility] at [address] [address] Dictating Physician: CONY ARMAS MD Electronically Signed by: CONY ARMAS MD Dic Date/Time: 03/13/24 1023 Sign date/Time: 03/13/24 1024 Christopher Bellamy MD IMG BI PROCEDURES Final Result from Last 3 Months or Most Recently Relevant to Health Maintenance Insurance [facility] [place]) MEDICARE ADVANTAGE Care Teams Cardroom Worker Relationship Specialty Start Date End Date Christopher Bellamy MD [address] [place] [address] PCP - General 07/02/23
--- OUTSIDE RECORDS SUMMARY | 2024-08-29 14:44 | XMS_ITS | Clinical Summary ---
Author Organization [facility] Address [address] [place] [address] Care Team Providers Care Ore Storage Drier Name Role Phone Unavailable Primary Care Provider Unavailabl e Social History Tobacco Use Types Packs/Day Years Used Date Smoking Tobacco: Never Assessed Sex and Gender Information Value Date Recorded Sex Assigned at Not on file Gender Identity Not on file Sexual Orientation Not on file Plan of Treatment Not on file
--- OUTSIDE RECORDS SUMMARY | 2024-08-29 14:44 | XMS_ITS ---
[facility] Address [address] [place] [address] Care Team Providers Care Appliance Painter And Refinisher Name Role Phone Alonzo White Primary Care Provider Shelia Barragan [phone] REASON FOR VISIT Asking for next appt before 63 days Encounters Encounter Location Date Provider Diagnosis [facility] [address] [address] 06/12/2024 Shelia Singer Plan Of Treatment Next Appt Details Provider Name:Shelia alvarez, 10/12/2024 09:00:00 AM, [address] [place] [address] [place], [address], Progress Notes * Wendy AVENDANODOB:1960 (64 yo F)Acc No.[id number]:06/12/2024 Patient:?Wendy AVENDANO :1960???Age:64 Y???Sex:Female Address:[address] [place] [address], [address] * true * Date:? Generated for Printi neha/[place]/eTransmitting on:?08/29/2024 02:44 PM EST
--- OUTSIDE RECORDS SUMMARY | 2024-08-29 14:44 | XMS_ITS | Patient Health Record ---
Author Organization [facility] Address [address] [place] [address] Care Team Providers Care Computer Applications Instructor Name Role Phone Christopher Rosado Primary Care Provider Shelia Barragan Unavailable [phone] Juan Sierra Unavailable [phone] Allergies Allergen (clinical drug ingredient) Drug/Non Drug Allergy documented on EMR Reaction Allergy Type Onset Date Status povidone-iodine Betadine sore throat, swelling Drug Allergy Active Bee Sting Unknown Allergy Active Shellfish (FN) Shellfish-derived Products Unknown Drug Allergy Active Results Component Value Reference Range Notes HEMOGLOBIN A1C (GLYCOHEMOGLO BIN) Reviewed date:08/11/2024 10:50:55 AM Interpretation: Performing Lab: Notes/Report: HEMOGLOBIN A1C % (HH) 5.0 HEMOGLOBIN A1C (GLYCOHEMOGLO BIN) Reviewed date:10/01/2023 08:42:25 AM Interpretation: Performing Lab: Notes/Report: HEMOGLOBIN A1C % (HH) 5 Reason For Referral No Information Medications Medication SIG (Take, Route, Frequency, Duration) Notes Start Date End Date Status Trulicity once a week inj Active Doxycycline (Rosacea) Not-Taking Aspirin Low Dose 81 MG Oral for 90 Active Extra Depth Diabetic Shoes with 3 Pair Custom heat-molded multi-density innersoles for 1 year Dx: Not-Taking Atorvastatin Calcium 40 MG Oral for 90 Active glipiZIDE 5 MG 1 tablet Oral Once a day Not-Taking Esomeprazole Magnesium 40 MG Oral for 90 Active Januvia Not-Taking Invokana 300 MG Oral for 90 Ac tive Levothyroxine Sodium 150 MCG Oral for 90 Active Levothyroxine Sodium 25 MCG 1 tablet in the morning on an empty stomach Orally Once a day Active Losartan Potassium 50 MG Oral for 90 Active Extra Depth Diabetic Shoes with 3 Pair Custom heat-molded multi-density innersoles for 1 year Dx: Active metFORMIN HCl 1000 MG Oral for 90 Active Doxycycline Active Tysabri Active Minoxidil Active Levothyroxine Sodium 25 MCG 1 tablet in the morning on an empty stomach Orally Once a day for 30 day(s) Active Immunizations Vaccine Route Administration Date Status Comme nts COVID-19 Moderna Vaccine Unknown 09/17/2020 Administere d COVID-19 Moderna Vaccine Unknown 10/15/2020 Administere d Influenza Unknown 05/19/2019 Administered Social History Tobacco Use: Social History [...] interested in quitting? Thinking about q uitting AUDIT-C (Standard) Question Answer Notes Did you have a drink contain ing alcohol in the past year? Yes How often did you have six o r more drinks on one occasion in the past year? Less than monthly (1 point) How many drinks did you have on a typical day when you were drinking in the past year? 3 or 4 drinks (1 point) How often did you have a dri nk containing alcohol in the past year? 2 to 3 times a week (3 points) Points 5 Interpretation Positive Problems Problem Type SNOMED Code ICD Code Onset Dates Problem Status W/U Status Risk Notes Problem Polyneuropathy due to type 2 diabetes mellitus (692193916) Type 2 diabetes mellitus with diabetic polyneuropathy (E11.42) Active confirmed Vital Signs Blood pressure diastolic 70 mm Hg 08/11/2024 Height 5ft4in in 08/11/2024 Blood pressure systolic 120 mm Hg 08/11/2024 Weight 188 lbs 08/11/2024 BMI 32.27 kg/m2 08/11/2024 Encounters Encounter Location Date Provider Diagnosis [facility] [address] [address] 10/01/2023 Juan Sierra Tinea unguium B35.1 ; Pain in right foot M79.671 ; Pain in left foot M79.672 ; Type 2 diabetes mellitus with diabetic polyneuropathy E11.42 ; Pain in right toe(s) M79.674 ; Pain in left toe(s) M79.675 ; Metatarsalgia, left foot M77.42 and Metatarsalgia, right foot M77.[address] [address] 12/24/2023 Juan Sierra Tinea unguium B35.1 ; Pain in right foot M79.671 ; Pain in left foot M79.672 ; Type 2 diabetes mellitus with diabetic polyneuropathy E11.42 ; Pain in right toe(s) M79.674 ; Pain in left toe(s) M79.675 ; Metatarsalgia, left foot M77.42 and Metatarsalgia, right foot M77.[address] [address] 03/17/2024 Juan Sierra Tinea unguium B35.1 ; Pain in right foot M79.671 ; Pain in left foot M79.672 ; Type 2 diabetes mellitus with diabetic polyneuropathy E11.42 ; Pain in right toe(s) M79.674 ; Pain in left toe(s) M79.675 ; Metatarsalgia, left foot M77.42 and Metatarsalgia, right foot M77.[address] [address] 06/12/2024 Shelia Singer Type 2 diabetes mellitus with diabetic polyneuropathy E11.42 [facility] [address] [place] [address] 08/11/2024 Shelia Singer Type 2 diabetes mellitus with diabetic polyneuropathy E11.[address] [address] 06/12/2024 Shelia Singer Assessments Encounter Date Diagnosis (ICD Code) Assessment Notes Treatment Notes Treatment Clinical Notes Section Notes 10/01/2023 Tinea unguium (ICD-10 - B35.1) 12/24/2023 Tinea unguium (ICD-10 - B35.1) 03/17/2024 Tinea unguium (ICD-10 - B35.1) 03/17/2024 Pain in right foot (ICD-10 - M79.671) 06/12/2024 Type 2 diabetes mellitus with diabetic polyneuropathy (ICD-10 - E11.42) 08/11/2024 Type 2 diabetes mellitus with diabetic polyneuropathy (ICD-10 - E11.42) 03/17/2024 Pain in left foot (ICD-10 - M79.672) 12/24/2023 Pain in right foot (ICD-10 - M79.671) 10/01/2023 Pain in right foot (ICD-10 - M79.671) 10/01/2023 Pain in left foot (ICD-10 - M79.672) 12/24/2023 Pain in left foot (ICD-10 - M79.672) 03/17/2024 Type 2 diabetes mellitus with diabetic polyneuropathy (ICD-10 - E11.42) 12/24/2023 Type 2 diabetes mellitus with diabetic polyneuropathy (ICD-10 - E11.42) 03/17/2024 Pain in right toe(s) (ICD-10 - M79.674) 10/01/2023 Type 2 diabetes mellitus with diabetic polyneuropathy (ICD-10 - E11.42) 10/01/2023 Pain in right toe(s) (ICD-10 - M79.674) 03/17/2024 Pain in left toe(s) (ICD-10 - M79.675) 12/24/2023 Pain in right toe(s) (ICD-10 - M79.674) 12/24/2023 Pain in left toe(s) (ICD-10 - M79.675) 10/01/2023 Pain in left toe(s) (ICD-10 - M79.675) 03/17/2024 Metatarsalgia, left foot (ICD-10 - M77.42) 03/17/2024 Metatarsalgia, right foot (ICD-10 - M77.41) 10/01/2023 Metatarsalgia, left foot (ICD-10 - M77.42) 12/24/2023 Metatarsalgia, left foot (ICD-10 - M77.42) 12/24/2023 Metatarsalgia, right foot (ICD-10 - M77.41) 10/01/2023 Metatarsalgia, right foot (ICD-10 - M77.41) Plan Of Treatment Pending Test Test Name Order Date 14700-IRUG SKIN LESIONS, OVER 4 06/09/20 01158-GOPG SKIN LESIONS, OVER 4 08/18/19 71048-TDRW SKIN LESIONS, OVER 4 11/07/19 60405-GALP SKIN LESIONS, OVER 4 01/23/20 87723-DAHU SKIN LESIONS, OVER 4 04/23/20 78317-FVWQ SKIN LESIONS, OVER 4 07/26/19 00929-LNXP SKIN LESIONS, OVER 4 10/26/19 54988-SQST SKIN LESIONS, OVER 4 02/08/20 41188-TJXT SKIN LESIONS, OVER 4 04/25/20 56472-EBYP SKIN LESIONS, OVER 4 08/15/19 Next Appt Details Provider Name:Shelia alvarez, 10/12/2024 09:00:00 AM, [address] [facility], [place], [address], Insurance Providers Payer Name Payer Address Payer Phone Subscriber Number Group Number Insured Name Patient Relationship to Insured Coverage Start Date Coverage End Date Chad Swanson [address] [place] [address] [id number] Wendy Will Self - patient is the insured Medical (General) History Medical History History ICD Code Diabetic Hypertension Multiple sclerosis Reflux ( GERD) Thyroid disorder Surgical History Surgery Date(Month/Year) foot surgery right 2003 Hand Surgery right 1984 cataract surgery 11/2021 tubes, glaucoma 2021 lasik 2021 eye surgery, glaucoma issue 02/19/23
--- OUTSIDE RECORDS SUMMARY | 2024-08-29 14:44 | XMS_ITS | Clinical Summary ---
Author Organization [facility] Address [address] [place] [address] Care Team Providers Care Farm Assistant Name Role Phone Unavailable Primary Care Provider Unavailabl e Source Comments PLEASE NOTE, if this patient is a minor, it may be UNLAWFUL to discuss sensitive information that is contained in these records (such as FAMILY PLANNING, MENTAL HEALTH or SUBSTANCE ABUSE) with the minor patient's parent or other person without the patient's specific authorization.[facility] Immunizations Name Administration Dates Next Due Moderna COVID-19 Vaccine, re d cap blue label, 12+ Primary Series 08/22/2021,10/14/2020,09/16/2020 Social History Tobacco Use Types Packs/Day Years Used Date Smoking Tobacco: Never Assessed Social Connections Answer Date Recorded Social Connections and Isolation 0 09/16/2020 Financial Resource Strain Answer Date R ecorded Financial Resource Strain 0 2020 Stress Answer Date Recorded Stress 0 09/16/2020 Physical Activity Answer Date Recorded Physical Activity 0 09/16/2020 Food Insecurity Answer Date Recorded Food 0 09/16/2020 Transportation Needs Answer Date Record ed Transportation 0 09/16/2020 Housing Stability Answer Date Recorded Housing 0 09/16/2020 Safety and Environment Answer Date Mohamud rded Safety 0 09/16/2020 Utilities Answer Date Recorded Utilities 0 09/16/2020 Employment Answer Date Recorded Employment 0 09/16/2020 Comments Unknown Sex and Gender Information Value Date Recorded Sex Assigned at Not on file Legal Sex Female 11:25 AM PST Gender Identity Not on file Sexual Orientation Not on file Plan of Treatment Health Maintenance Due Date Last Done Comments Diabetes Screening 1960 HPV Screening 1960 Hepatitis C Screening 1960 Lipid Screening 1960 Pap + HPV 1960 Tobacco Screening 1960 HIV Screening 1977 Hypertension Screening (#1) 02/15/1980 Imm-DTaP/Tdap/Td (1 - Tdap) 1981 Cervical Cancer Screening 1983 Pap Smear 1983 Breast Cancer Screening (Mammogram) 2002 CT Colonography 2007 Colonoscopy 2007 Colorectal Cancer Screening 2007 FIT/gFOBT 2007 Fecal DNA 2007 Flexible Sigmoidoscopy 2007 Wtw-TSDAM-16 ( season) 2024 08/22/2021, 10/14/2020, 09/16/2020 Imm-Influenza (#1) 2024 05/19/2019 Alcohol and Drug Screen 07/05/2024 Depression Annual Screen 07/05/2024 Imm-Zoster, Recombinant Completed 12/30/2020, 07/23 Cervical Ablation/Cold-Knife Conization Discontinued Cervical Cryotherapy Discontinued Colposcopy Discontinued Endometrial Biopsy Discontinued Excision/Leep Discontinued HPV Genotyping Discontinued Vaginal Pap Discontinued Vulvoscopy Discontinued Insurance [employer] Member Subscriber Plan / Payer (Ef fective 2020-Present) Name:Wendy Will Relation to Subscriber:Self Name:Wendy Will Payer ID:[id number] Type:Indemnity Address: [facility] [id number] [place] [address]
[2024-09-04 02:33] LABS: JCV Antibody NEGATIVE; JCV Index Value 0.19 index
== END 2024-08-29 12:03 | disposition home or self-care (01) ==
LOC: HO.LAB 12:02
PROVIDERS: PCP Hospitalist; Visit Provider Registered Nurse
DX: G35 Multiple sclerosis (principal)
CPT/HCPCS: 36415; 80076; 85025; 86711

== ENCOUNTER 2025-02-19 08:48 | Outpatient (AMB) | payer BC, SELFPAY ==
--- NOTE | 2025-02-19 09:12 | A.OFFVIS_ITS ---
Intake Visit Reasons: 6 month MS Allergies No Known Allergies Allergy (Verified 02/12/25 11:12) HPI Comments Details: She was doing okay. MS stable, no new symptoms. Occasionally feels a little off balance, no falls. No weakness.?Sometimes gets a dull, sharp pain in feet lasting 5-10 minutes, none recently. Some tingling in feet, comes and goes. No recent numbness in hands.?Gets Tysbari every 4 weeks, no?side effects.?Follows with?glaucoma and retina specialist in [place].?Gets injections for macular degeneration every 5 weeks. Has stent for glaucoma to help with pressure 10/2023.? She was diagnosed with multiple sclerosis about 25 years ago and was on Tysabri infusions every 4 weeks till March 2022. She has not had any exacerbations clinically. She had changed neurologists and wanted to restart her Tysabri infusions. Restarted Tysabri 09/08/22. [facility] Medical History (Updated 02/19/25 @ 09:15 by Indiana Moon CNP) Carpal tunnel syndrome, bilateral upper limbs Diabetes mellitus Multiple sclerosis Review of Systems Const Denies chills, Denies daytime sleepiness, Denies difficulty sleeping, Denies fatigue, Denies fever(s), Denies frequent falls, Denies headache(s), Denies increased appetite, Denies poor appetite, Denies snoring, Denies weakness, Denies weight gain and Denies weight loss Eyes Denies loss of vision ENT Denies vertigo, Denies dizziness, Denies headache(s) and Denies neck pain Card Denies chest pain at rest, Denies chest pain with activity, Denies syncope, Denies leg edema, Denies palpitations, Denies dyspnea and Denies dyspnea on exertion Resp Denies cough, Denies dyspnea, Denies dyspnea on exertion and Denies snoring GI Denies abdominal pain, Denies constipation, Denies heartburn, Denies diarrhea and Denies nausea Denies urinary frequency, Denies urinary incontinence and Denies urinary urgency Musc Denies abnormal gait, Denies back pain, Denies myalgias, Denies arthralgias, Denies neck pain, Reports numbness and Reports tingling Neuro Denies abnormal gait, Denies vertigo, Denies dizziness, Denies syncope, Denies frequent falls, Denies headache(s), Denies lack of coordination, Denies loss of vision, Denies memory loss, Reports numbness, Denies Other visual disturbances, Denies restless legs, Denies seizure-like activity, Reports tingling, Denies paresthesias, Denies tremor(s), Denies weakness and Reports other (balance difficulty) Psych Denies anxiety, Denies depression, Denies auditory hallucinations, Denies memory loss and Denies visual hallucinations Endo Denies fatigue and Denies palpitations Physical Exam Const Other: General Appearance:? normal, in no acute distress. Heart:? S1, S2 normal, no murmurs. Lungs:? clear anteriorly and posteriorly. Musculoskeletal:? normal. Extremities:? no edema. Psych:? alert, oriented, cognitive function intact, cooperative with exam. Neuro Other: Abnormal Neurological Findings:?5-/5 L finger spread.? Mental Status: alert and oriented X 3. Normal attention, orientation, memory, and affect. Cranial Nerves: Pupils are equal, round, and reactive to light. External ocular muscles are intact. Visual fritz are full, no ptosis. Face is symmetrical, no facial weakness or droop. Facial sensations are normal. Tongue protrudes in midline. Palate elevates symmetrically. Shoulder shrugging is normal Motor Examination: As above, otherwise normal muscle tone, bulk and strength. No atrophy or fasciculations. No drift of the extended upper extremities. DTR 2+. Plantars are flexor. Sensory Exam: Normal light touch, temperature, pinprick, vibration, and joint- position sensations. Rhomberg sign is absent. Coordination: No ataxia. No titubation. Vwjgaf-ds-ahhl, awnf-zeuc-ngij test, and rapid alternating movements were normal. Gait Exam: Within normal limits. Cerebellar Signs: Yladsp-fj-ayrt and lxki-rq-ggph is normal. No dysdiadochokinesia. Extrapyramidal System: No tremor, rigidity with normal facial expressions. No bradykinesia. No bradyphrenia. Normal arm swing and posture. No propulsion or retropulsion. Speech: Normal. No dysphasia or dysarthria. Results Reviewed Results Reviewed: Laboratory Tests 08/29/24 12:24 WBC 10.8 RBC 5.02 Hgb 15.6 Hct 42.3 MCV 84.3 MCH 31.1 MCHC 36.9 H RDW 14.6 Plt Count 231 MPV 9.8 Immature Gran % (Auto) 0.4 Neut % (Auto) 35.8 L Lymph % (Auto) 56.4 H Guadalupe % (Auto) 5.2 Eos % (Auto) 1.5 Baso % (Auto) 0.7 Lymph # (Auto) 6.1 H Guadalupe # (Auto) 0.6 Eos # (Auto) 0.2 Baso # (Auto) 0.1 Abs Immat Gran (auto) 0.04 H Absolute Neuts (auto) 3.9 Absolute Nucleated RBC 0.070 H Nucleated RBC % (auto) 0.7 H Total Bilirubin 0.4 Direct Bilirubin 0.1 AST 21 ALT 24 Alkaline Phosphatase 134 H Total Protein 7.5 Albumin 4.3 VITALY Virus Antibody NEGATIVE VITALY Virus Ab Index TOSHIA 0.19 VITALY Virus Ab Inhib Assay TNP Patient:?Wendy Nicolette D.O.B:?1960 Sex:?Female Phone:?[phone] [facility] MRN:?[id number] Exam Date:?09/19/2024 [place] [address] Phone:?[phone] Fax:?[phone] Referring Physician Information: Indiana Moon, [facility] [address] [facility] [address] [place] [address] Phone:?[phone] Fax:?[phone] PROCEDURE: MR BRAIN w + wo CONTRAST INDICATION: Followup multiple sclerosis. TECHNIQUE: Multi-planar, multi-sequence MR imaging of the brain was performed without and with intravenous contrast. Dotarem 17 mL was administered intravenously. No contrast waste documented. COMPARISON: MR brain 09/23/2022. FINDINGS: Multifocal areas of T2 prolongation within the supratentorial brain consistent with patient''s diagnosis of multiple sclerosis. No restricted diffusion is identified. No associated abnormal enhancement. No findings of intracranial hemorrhage. Generalized volume loss. The ventricles and midline structures are otherwise otherwise of normal appearance. The major intracranial flow voids are present and of normal appearance. No extra-axial abnormality. The paranasal sinuses are clear. The mastoid air cells are clear. No orbital abnormalities identified. IMPRESSION: Multiple sclerosis. No findings of restricted diffusion or abnormal enhancement. No significant change compared to most recent prior. Ace Perea MD Signed by Ace Perea MD --- 09/2022 MRI shows stable chronic MS lesions with some black holes. No enhancing lesions. Assessment & Plan Assessment & Plan (1) Multiple sclerosis: Code(s): G35 - Multiple sclerosis Category: Medical Plan: Labs and MRI results reviewed, stable from previous. Continue Tysabri Concentrate 300mg/15mL IV q4 weeks Coding Level of Care Code Est Pt Level 4 (06055) Diagnoses Multiple sclerosis G35
--- OUTSIDE RECORDS SUMMARY | 2025-02-19 09:14 | XMS_ITS | Clinical Summary ---
Author Organization [facility] Address [address] [place] [phone] Phone Care Team Providers Care Assistant Corporation Counsel Name Role Phone Christopher Rosado Tom ZAIDI Primary Care Provider Allergies No known active allergies Medications aspirin 81 MG EC tablet Take 81 mg by mouth daily. Active atorvastatin (LIPITOR) 40 MG tablet Take 40 mg by mouth daily. Active INVOKANA 100 mg tablet Take 100 mg by mouth daily. Active ciclopirox (LOPROX) 1 % shampoo Apply topically 2 (two) times a day. 4 Active clobetasol (TEMOVATE) 0.05 % ointment Apply topically 2 (two) times a day. 4 Active doxycycline hyclate 20 MG tablet Take 20 mg by mouth 2 (two) times a day. 4 Active TRULICITY 0.75 mg/0.5 mL subcutaneous injection Inject 0.75 mg under the skin every 7 days. 4 Active esomeprazole (NEXIUM) 40 MG capsule Take 40 mg by mouth 2 (two) times a day. Active hydrOXYzine (ATARAX) 25 MG tablet Take 25 mg by mouth every 6 (six) hours as needed. Active tacrolimus (PROTOPIC) 0.03 % ointment Apply topically 2 (two) times a day. 3 Active levothyroxine (SYNTHROID, LEVOTHROID) 150 MCG tablet Take 150 mcg by mouth every morning. Active levothyroxine (SYNTHROID,LEVOTH ROID) 25 MCG tablet Take 25 mcg by mouth every morning. Active minoxidiL (LONITEN) 2.5 MG tablet Take 2.5 mg by mouth 2 (two) times a day. Active losartan (COZAAR) 50 MG tablet Take 50 mg by mouth daily. Active metFORMIN (GLUCOPHAGE) 1000 MG tablet Take 500 mg by mouth daily with breakfast. Active Encounters Date Type Department Care Team Description 02/05/2025 11:15 AM EDT Procedure visit [facility] in [place] [id number] Patrick Messer MD Type 2 diabetes mellitus with both eyes affected by mild nonproliferative retinopathy and macular edema, without long-term current use of insulin (Primary Dx) 12/18/2024 11:00 AM EDT [facility] visit [facility] [address] [address] Patrick Messer MD Type 2 diabetes mellitus with both eyes affected by mild nonproliferative retinopathy and macular edema, without long-term current use of insulin (Primary Dx) from Last 3 Months Social History Tobacco Use Types Packs/Day Years Used Date Smoking Tobacco: Never Assessed Education Answer Date Recorded Are you interested in more education? Not on joel e 04/27/2024 Are you concerned about learning? Not on file 04/27/2024 No 04/27/2024 No 04/27/2024 Digital Access Answer Date Recorded No 04/27/2024 No 04/27/2024 Reliable internet access at home? Not on file 04/27/2024 Device with a working camera? Not on file Comments Unknown Sex and Gender Information Value Date Recorded Sex Assigned at Not on file Legal Sex Female 9:07 AM EDT Gender Identity Not on file Sexual Orientation Not on file Plan of Treatment Upcoming Encounters Date Type Department Care Team ([facility] Contact Info) Description 03/26/2025 11:15 AM EDT Procedure visit [facility] [address] [address] Patrick Messer MD [address] [place], [place] [id number] [email or web address] 03/26/2025 11:30 AM EDT Procedure visit [facility] in [address] [place] [address] Health Maintenance Due Date Last Done Comments Adult Td,Tdap Booster 1960 BLOOD PRESSURE 1962 CREATININE LEVEL 1962 HEMOGLOBIN A1C 1962 POTASSIUM LEVEL 1962 TSH LEVEL 1962 DEPRESSION SCREENING 1974 SMOKING Hx and SMOKELESS TOBACCO SCREENING 1975 HEPATITIS C SCREENING 02/15/1980 HIV ONE-TIME SCREENING (18-65 YEARS) 02/15/1980 PNEUMOCOCCAL VACCINES (50+ years) (1 of 2 - PCV) 1981 PAP SMEAR 1983 MAMMOGRAM 2002 COLOGUARD 2007 COLONOSCOPY 2007 COLORECTAL CANCER SCREENING 2007 FIT TEST 2007 FOBT 2007 SIGMOIDOSCOPY 2007 VIRTUAL COLONOSCOPY 2007 ZOSTER VACCINES (1 of 2) 02/15/2012 RSV VACCINE (1 - Risk 60-74 years 1-dose series) 2022 COVID-19 VACCINE (1 - season) 2024 DIABETIC EYE EXAM 02/05/2026 02/05/2025, , 02/05/2025, Additional history exists HEPATITIS A VACCINES Aged Out No long er eligible based on patient's age to complete this topic HIB VACCINES Aged Out No longer eligi ble based on patient's age to complete this topic MENINGOCOCCAL VACCINES (ACWY) Aged Out No longer eligible based on patient's age to complete this topic MENINGOCOCCAL VACCINES (B) Aged Out N o longer eligible based on patient's age to complete this topic Medical Devices Not on file Procedures Procedure Name Priority Date/Time Associated Diagnosis Comments INTRAVITREAL INJECTION, PHARMACOLOGIC AGENT - OU - BOTH EYES Routine 02/05/2025 12:18 PM EDT Type 2 diabetes mellitus with both eyes affected by mild nonproliferative retinopathy and macular edema, without long-term current use of insulin OCT, RETINA - OU - BOTH EYES Routine 02/05/2025 11:50 AM EDT Type 2 diabetes mellitus with both eyes affected by mild nonproliferative retinopathy and macular edema, without long-term current use of insulin INTRAVITREAL INJECTION, PHARMACOLOGIC AGENT - OU - BOTH EYES Routine 12/18/2024 12:21 PM EDT Type 2 diabetes mellitus with both eyes affected by mild nonproliferative retinopathy and macular edema, without long-term current use of insulin OCT, RETINA - OU - BOTH EYES Routine 12/18/2024 11:06 AM EDT Type 2 diabetes mellitus with both eyes affected by mild nonproliferative retinopathy and macular edema, without long-term current use of insulin from Last 3 Months Results * Intravitreal Injection, Pharmacologic Agent - OU - Both Eyes (02/05/2025 12:18 PM EDT) Anatomical Region Laterality Modality Head Other Other Narrative 02/05/2025 12:18 PM EDT VA Right Eye Anesthetic Medication: Proparacaine 0.5%. Dilation medication: Phenylephrine 2.5%-Tropicamide 1%. Antibiotic/Antiseptic Medication, time: (Chlorhexidine). Left Eye Anesthetic Medication: Proparacaine 0.5%. Dilation medication: Phenylephrine 2.5%-Tropicamide 1%. Antibiotic/Antiseptic Medication, time: (Chlorhexidine). Injection Information Timeout performed: Yes. Right Eye Anesthetic Medication: Proparacaine 0.5%. Antiseptic Medication, Time: (Chlorhexidine). Injection Medication: 6 mg faricimab-svoa 6 mg/0.05 mL Route: Intravitreal, Site: Right Eye NDC: 75321-233-84, Lot: [id number], Expiration date: 02/01/2026, Waste: 0 mL Left Eye Anesthetic Medication: Proparacaine 0.5%. Antiseptic Medication, Time: (Chlorhexidine). Injection Medication: 6 mg faricimab-svoa 6 mg/0.05 mL Route: Intravitreal, Site: Left Eye NDC: 75764-816-50, Lot: [id number], Expiration date: 02/01/2026, Waste: 0 mL Notes Injection performed without complication. Proparacaine drop used Chlorhexidine drop used Akten Subconj. Lido used. Patrick Messer MD OPHTHALMOLOGY PROCEDURES Final Result * OCT, RETINA - OU - BOTH EYES - Cirrus; Retina; Macula Thinckess Map; Macula; HD 5-Line Macula LISA (02/05/2025 11:50 AM EDT) Other Narrative SHILA - 02/05/2025 12:18 PM EDT Testing performed by: Gumaro. Notes OD - stable edema OS - no edema Patrick Messer MD OPHTHALMOLOGY IMAGING Final Re sult SHILA * Intravitreal Injection, Pharmacologic Agent - OU - Both Eyes (12/18/2024 12:21 PM EDT) Anatomical Region Laterality Modality Head Other Other Narrative 12/18/2024 12:21 PM EDT VA Right Eye Anesthetic Medication: Proparacaine 0.5%. Dilation medication: Phenylephrine 2.5%-Tropicamide 1%. Antibiotic/Antiseptic Medication, time: (Chlorhexidine). Left Eye Anesthetic Medication: Proparacaine 0.5%. Dilation medication: Phenylephrine 2.5%-Tropicamide 1%. Antibiotic/Antiseptic Medication, time: (Chlorhexidine). Injection Information Timeout performed: Yes. Right Eye Anesthetic Medication: Proparacaine 0.5%. Antiseptic Medication, Time: (Chlorhexidine). Injection Medication: 6 mg faricimab-svoa 6 mg/0.05 mL Route: Intravitreal, Site: Right Eye ND: 73020-320-26, Lot: [id number], Expiration date: 12/02/2025, Waste: 0 mL Left Eye Anesthetic Medication: Proparacaine 0.5%. Antiseptic Medication, Time: (Chlorhexidine). Injection Medication: 6 mg faricimab-svoa 6 mg/0.05 mL Route: Intravitreal, Site: Left Eye NDC: 67808-758-85, Lot: [id number], Expiration date: 12/02/2025, Waste: 0 mL Notes Injection performed without complication. Proparacaine drop used Chlorhexidine drop used Akten Subconj. Lido used. Injection Materials setup by OB us Patrick Messer MD OPHTHALMOLOGY PROCEDURES Final Result * OCT, RETINA - OU - BOTH EYES - Cirrus; Retina (12/18/2024 11:06 AM EDT) Other Narrative HARMONY - 12/18/2024 12:22 PM EDT Testing performed by: FCK. Notes OD - mild edema OS - no edema us Patrick Messer MD OPHTHALMOLOGY IMAGING Final Re sult SHILA from Last 3 Months Insurance [employer] Care Teams Assistant Corporation Counsel Relationship Specialty Start Date End Date Christopher Rosado MD [address] [facility] [address] [place] [address] PCP - General Internal Medicine 05/22/24 Additional Source Comments The information contained in this document represents components of the legal health record. It is not the complete legal health record.[facility]
--- OUTSIDE RECORDS SUMMARY | 2025-02-19 09:14 | XMS_ITS | Clinical Summary ---
Author Organization [employer] [facility] Address [address] [place] [address] Care Team Providers Care Recruitment Internship Name Role Phone Unavailable Primary Care Provider Unavailabl e Social History Tobacco Use Types Packs/Day Years Used Date Smoking Tobacco: Never Assessed Sex and Gender Information Value Date Recorded Sex Assigned at Not on file Gender Identity Not on file Sexual Orientation Not on file Plan of Treatment Not on file
--- OUTSIDE RECORDS SUMMARY | 2025-02-19 09:14 | XMS_ITS | Patient Health Record ---
Author Organization [employer] Address [address] [place] [address] Care Team Providers Care Sports Bookmaker Name Role Phone CRISTINA BELLAMY Primary Care Provider Ricky Maldonadojeison Unavailable [phone] Allergies Allergen (clinical drug ingredient) Drug/Non Drug Allergy documented on EMR Reaction Allergy Type Onset Date Status bee sting (uncoded) Unknown Allergy Active Shellfish (FN) Shellfish-derived Products Unknown Drug Allergy Active Results Component Value Reference Range Notes Hgb A1c with eAG Estimation- [id number] Reviewed date:10/16/2024 12:50:52 AM Interpretation: Performing Lab:[facility], [address] [place] [address], [place], Phone - [phone], Director - [place] Notes/Report: Hemoglobin A1c 6.1 4.8-5.6 % . Prediabetes: 5.7 - 6.4 Diabetes: >6.4 Glycemic control for adults with diabetes: <7.0 Estim. Avg Glu (eAG) 128 Denzel Screening Digital Reviewed date:03/14/2024 01:04:52 PM Interpretation: Performing Lab: Notes/Report: Original Ordering Provider: CRISTINA BELLAMY MD [facility] Reason For Referral No Information Medications Medication SIG (Take, Route, Frequency, Duration) Notes Start Date End Date Status Benzonatate 100 MG 1 capsule as needed Orally Three times a day; Duration: 7 days 07/08/2023 Not-Taking hydrOXYzine HCl 25 MG TAKE 1 TABLET BY M OUTH EVERY 8 HOURS NEEDED FOR 30 DAYS; Duration: 90 Not-Taking Atorvastatin Calcium 40 MG TAKE 1 TABLET BY MOUTH EVERY DAY; Duration: 90 Active Invokana 100 MG TAKE 1 TABLET BY ARGELIA TH EVERY DAY FOR 90 DAYS; Duration: 90 Active Pneumovax 23 25 MCG/0.5ML as directed Injection 1; Duration: 365 days 07/23/2021 Not-Taking glipiZIDE 5 MG TAKE 1 TABLET BY ARGELIA th Once a day; Duration: 90 Not-Korey ing Doxycycline Not-Taki ng Nicotine Polacrilex 4 MG CHEW 1 PIECE FO R 30 MINUTES NEEDED MOUTH/THROAT EVERY 8 HOURS 30 DAYS; Duration: 30 Active Shingrix 50 MCG/0.5ML as directed Intramuscular 1; Duration: 365 days 07/23/2021 Not-Taking Esomeprazole Magnesium 40 MG TAKE 1 CAPSULE BY MOUTH TWICE A DAY; Duration: 90 Active metFORMIN HCl 1000 MG TAKE 1 TABLET BY OUT TWICE A DAY WITH MEALS; Duration: 90 Active Januvia 50 MG TAKE 1 TABLET BY ARGELIA TH EVERY DAY; Duration: 90 Not-Taki ng Levothyroxine Sodium 150 MCG TAKE 1 TABLET BY MOUTH EVERY DAY; Duration: 90 Active Aspirin 81 MG TAKE 1 TABLET BY ARGELIA TH EVERY DAY; Duration: 90 Active Trulicity 0.75 MG/0.5ML INJECT THE JR NTS OF 1 PEN SUBCUTANEOUSLY ONCE WEEKLY; Duration: 28 Active Tysabri 300 MG/15ML as directed Intraven ous q 28 days Active Losartan Potassium 50 MG TAKE 1 TABLET B Y MOUTH EVERY DAY; Duration: 90 Active Fluticasone Propionate 50 MCG/ACT SPRAY 1 SPRAY INTO EACH NOSTRIL EVERY DAY FOR 30 DAYS as needed; Duration: 90 days Active Levothyroxine Sodium 25 MCG TAKE 1 TABLET BY MOUTH EVERY DAY; Duration: 90 Active Immunizations Vaccine Route Administration Date Status Comme nts COVID Unknown 09/16/2020 Administered moderna COVID Unknown 10/14/2020 Administered moderna COVID Moderna Unknown 09/16/2020 Administered COVID Moderna Unknown 10/14/2020 Administered COVID Moderna Unknown 08/22/2021 Administered Flublok [id number] IM Intramuscular 04/28/2024 Administered Influenza, high dose [...] Problem Status W/U Status Risk Notes Problem Hypothyroidism, unspecified (E03.9) Active confirmed Problem Diabetic retinopathy (6098299) Diabetes mellitus due to underlying condition with unspecified diabetic retinopathy with macular edema (E08.311) Active confirmed Problem Tobacco user (073569294) Nicotine dependence, cigarettes, uncomplicated (F17.210) Active confirmed Problem Generalized anxiety disorder (41717458) Generalized anxiety disorder (F41.1) Active confirmed Problem Multiple sclerosis (42926285) Multiple sclerosis (G35) Active confirmed Problem Essential hypertension (34822589) Essential (primary) hypertension (I10) Active confirmed Problem Adult health examination (822035145) Encounter for general adult medical examination without abnormal findings (Z00.00) Active confirmed Problem Hyperlipidemia (08175218) Hyperlipidemia, unspecified (E78.5) Active confirmed Problem Abnormal gait (37812064) Gait instability (R26.81) Active confirmed Problem Tobacco dependence (04382253) Tobacco dependence (F17.200) Active confirmed Vital Signs Heart Rate 77 /min 10/27/2024 Temperature 94.7 degrees Fahrenheit 10/27/2024 Blood pressure diastolic 80 mm Hg 10/27/2024 Oximetry 99 % 10/27/2024 Height 64.61 in 10/27/2024 Blood pressure systolic 116 mm Hg 10/27/2024 Weight 186.9 lbs 10/27/2024 BMI 31.47 kg/m2 10/27/2024 Encounters Encounter Location Date Provider Diagnosis [facility] [address] [place] [address] 04/28/2024 Damon Maldonado Diabetes mellitus du e to underlying condition with unspecified diabetic retinopathy with macular edema E08.311 ; Essential (primary) hypertension I10 ; Hyperlipidemia, unspecified E78.5 ; Hypothyroidism, unspecified E03.9 ; Tobacco dependence F17.200 ; Encounter for immunization Z23 and Tobacco abuse counseling Z71.6 [facility] [address] [place] [address] 10/27/2024 Damon Maldonado Fall (on) (from) ot er stairs and steps, sequela W10.8XXS ; Diabetes mellitus due to underlying condition with unspecified diabetic retinopathy with macular edema E08.311 ; Essential (primary) hypertension I10 ; Hyperlipidemia, unspecified E78.5 ; Hypothyroidism, unspecified E03.9 and Tobacco abuse counseling Z71.6 Assessments Encounter Date Diagnosis (ICD Code) Assessment Notes Treatment Notes Treatment Clinical Notes Section Notes 10/27/2024 Diabetes mellitus due to underlying condition with unspecified diabetic retinopathy with macular edema (ICD-10 - E08.311) Ms. Will is a 64-year-old lady with hypertension, hyperlipidemia, DM2, acid reflux, hypothyroidism and multiple sclerosis tobacco dependence is here for 6 months follow-up Diabetes mellitus with retinopathy. HbA1c is 6.9 labs reviewed resulted on 10/13/24. She will continue her medication including Trulicity and Metformin 1000 MG. check A1c.On the next appointment. Hypertension. Blood pressure well controlled on current regimen. Continue Losartan 50 MG. blood pressure is 116/80 stable, lab work reviewed and discussed with patient albumin creatinine ratio is within normal limits basic metabolic panel is unremarkable.lab work was done on 10/13/24 Hyperlipidemia. lipid panel within normal limits. Continue Atorvastatin 40 MG. Hypothyroidism. Continue Levothyroxine 25 MCG and advised to take it first thing in the morning on an empty stomach. Nicotine dependence. She is still currently smoking and cessation advised.Nicotine gum replacement prescription has been given fall and headaches. She has no neurological deficit, we will obtain a CT of the head and make sure there is no bleed. This could be due to concussion. Tylenol as needed. 10/27/2024 Fall (on) (from) other stairs and steps, sequela (ICD-10 - W10.8XXS) Ms. Will is a 64-year-old lady with hypertension, hyperlipidemia, DM2, acid reflux, hypothyroidism and multiple sclerosis tobacco dependence is here for 6 months follow-up Diabetes mellitus with retinopathy. HbA1c is 6.9 labs reviewed resulted on 10/13/24. She will continue her medication including Trulicity and Metformin 1000 MG. check A1c.On the next appointment. Hypertension. Blood pressure well controlled on current regimen. Continue Losartan 50 MG. blood pressure is 116/80 stable, lab work reviewed and discussed with patient albumin creatinine ratio is within normal limits basic metabolic panel is unremarkable.lab work was done on 10/13/24 Hyperlipidemia. lipid panel within normal limits. Continue Atorvastatin 40 MG. Hypothyroidism. Continue Levothyroxine 25 MCG and advised to take it first thing in the morning on an empty stomach. Nicotine dependence. She is still currently smoking and cessation advised.Nicotine gum replacement prescription has been given fall and headaches. She has no neurological deficit, we will obtain a CT of the head and make sure there is no bleed. This could be due to concussion. Tylenol as needed. 04/28/2024 Diabetes mellitus due to underlying condition [...] blood sugars at home. She sees her distribution dispatcher. Foot care discussed. Continue Trulicity and Metformin [...] gum was given Glaucoma. She sees her distribution dispatcher regularly.in [place] obesity exercise diet controlled and lifestyle modification was advised Dental screening. She sees dentist regularly. Breast cancer screening. She is up-to-date on her mammogram. Colon cancer screening. She had her colonoscopy done in 2018 and is on 0-[id number]-[id number]. Immunizations. She is up-to-date on her COVID [...] blood sugars at home. She sees her distribution dispatcher. Foot care discussed. Continue Trulicity and Metformin [...] gum was given Glaucoma. She sees her distribution dispatcher regularly.in Egan obesity exercise diet controlled and lifestyle modification was advised Dental screening. She sees dentist regularly. Breast cancer screening. She is up-to-date on her mammogram. Colon cancer screening. She had her colonoscopy done in 2018 and is on [id number]-[id number]. Immunizations. She is up-to-date on her COVID vaccinations. flu vaccine will be given today diabetic foot exam she was following with Dr. Sierra he is retired and now she will be going to General health concerns discussed with patient .patient will follow up in 6 months 10/27/2024 Essential (primary) hypertension (ICD-10 - I10) Ms. Will is a 64-year-old lady with hypertension, hyperlipidemia, DM2, acid reflux, hypothyroidism and multiple sclerosis tobacco dependence is here for 6 months follow-up Diabetes mellitus with retinopathy. HbA1c is 6.9 labs reviewed resulted on 10/13/24. She will continue her medication including Trulicity and Metformin 1000 MG. check A1c.On the next appointment. Hypertension. Blood pressure well controlled on current regimen. Continue Losartan 50 MG. blood pressure is 116/80 stable, lab work reviewed and discussed with patient albumin creatinine ratio is within normal limits basic metabolic panel is unremarkable.lab work was done on 10/13/24 Hyperlipidemia. lipid panel within normal limits. Continue Atorvastatin 40 MG. Hypothyroidism. Continue Levothyroxine 25 MCG and advised to take it first thing in the morning on an empty stomach. Nicotine dependence. She is still currently smoking and cessation advised.Nicotine gum replacement prescription has been given fall and headaches. She has no neurological deficit, we will obtain a CT of the head and make sure there is no bleed. This could be due to concussion. Tylenol as needed. 10/27/2024 Hyperlipidemia, unspecified (ICD-10 - E78.5) Ms. Will is a 64-year-old lady with hypertension, hyperlipidemia, DM2, acid reflux, hypothyroidism and multiple sclerosis tobacco dependence is here for 6 months follow-up Diabetes mellitus with retinopathy. HbA1c is 6.9 labs reviewed resulted on 10/13/24. She will continue her medication including Trulicity and Metformin 1000 MG. check A1c.On the next appointment. Hypertension. Blood pressure well controlled on current regimen. Continue Losartan 50 MG. blood pressure is 116/80 stable, lab work reviewed and discussed with patient albumin creatinine ratio is within normal limits basic metabolic panel is unremarkable.lab work was done on 10/13/24 Hyperlipidemia. lipid panel within normal limits. Continue Atorvastatin 40 MG. Hypothyroidism. Continue Levothyroxine 25 MCG and advised to take it first thing in the morning on an empty stomach. Nicotine dependence. She is still currently smoking and cessation advised.Nicotine gum replacement prescription has been given fall and headaches. She has no neurological deficit, we will obtain a CT of the head and make sure there is no bleed. This could be due to concussion. Tylenol as needed. 04/28/2024 Hyperlipidemia, unspecified (ICD-10 - E78.5) Ms. Will is a 64-year-old lady with hypertension, hyperlipidemia, DM2, acid reflux, hypothyroidism and multiple sclerosis tobacco dependence is here for 6 months follow-up Diabetes mellitus with retinopathy. A1c 5.6.in October 2023 patient was given a lab slip but never did her blood work. She also does not check her blood sugars at home. She sees her distribution dispatcher. Foot care discussed. Continue Trulicity and Metformin [...] gum was given Glaucoma. She sees her distribution dispatcher regularly.in Egan obesity exercise diet controlled and lifestyle modification was advised Dental screening. She sees dentist regularly. Breast cancer screening. She is up-to-date on her mammogram. Colon cancer screening. She had her colonoscopy done in 2018 and is on 0-wklk-iqpes. Immunizations. She is up-to-date on her COVID [...] blood sugars at home. She sees her distribution dispatcher. Foot care discussed. Continue Trulicity and Metformin [...] gum was given Glaucoma. She sees her distribution dispatcher regularly.in Egan obesity exercise diet controlled and lifestyle modification was advised Dental screening. She sees dentist regularly. Breast cancer screening. She is up-to-date on her mammogram. Colon cancer screening. She had her colonoscopy done in 2018 and is on 9-gyra-[id number]. Immunizations. She is up-to-date on her COVID vaccinations. flu vaccine will be given today diabetic foot exam she was following with Dr. Sierra he is retired and now she will be going to General health concerns discussed with patient .patient will follow up in 6 months 10/27/2024 Hypothyroidism, unspecified (ICD-10 - E03.9) Ms. Will is a 64-year-old lady with hypertension, hyperlipidemia, DM2, acid reflux, hypothyroidism and multiple sclerosis tobacco dependence is here for 6 months follow-up Diabetes mellitus with retinopathy. HbA1c is 6.9 labs reviewed resulted on 10/13/24. She will continue her medication including Trulicity and Metformin 1000 MG. check A1c.On the next appointment. Hypertension. Blood pressure well controlled on current regimen. Continue Losartan 50 MG. blood pressure is 116/80 stable, lab work reviewed and discussed with patient albumin creatinine ratio is within normal limits basic metabolic panel is unremarkable.lab work was done on 10/13/24 Hyperlipidemia. lipid panel within normal limits. Continue Atorvastatin 40 MG. Hypothyroidism. Continue Levothyroxine 25 MCG and advised to take it first thing in the morning on an empty stomach. Nicotine dependence. She is still currently smoking and cessation advised.Nicotine gum replacement prescription has been given fall and headaches. She has no neurological deficit, we will obtain a CT of the head and make sure there is no bleed. This could be due to concussion. Tylenol as needed. 04/28/2024 Tobacco dependence (ICD-10 - F17.200) Ms. Will is a 64-year-old lady with hypertension, hyperlipidemia, DM2, acid reflux, hypothyroidism and multiple sclerosis tobacco dependence is here for 6 months follow-up Diabetes mellitus with retinopathy. A1c 5.6.in October 2023 patient was given a lab slip but never did her blood work. She also does not check her blood sugars at home. She sees her distribution dispatcher. Foot care discussed. Continue Trulicity and Metformin [...] gum was given Glaucoma. She sees her distribution dispatcher regularly.in Egan obesity exercise diet controlled and lifestyle modification was advised Dental screening. She sees dentist regularly. Breast cancer screening. She is up-to-date on her mammogram. Colon cancer screening. She had her colonoscopy done in 2018 and is on 5-xgnk-vyome. Immunizations. She is up-to-date on her COVID [...] blood sugars at home. She sees her distribution dispatcher. Foot care discussed. Continue Trulicity and Metformin [...] gum was given Glaucoma. She sees her distribution dispatcher regularly.in Egan obesity exercise diet controlled and lifestyle modification was advised Dental screening. She sees dentist regularly. Breast cancer screening. She is up-to-date on her mammogram. Colon cancer screening. She had her colonoscopy done in 2018 and is on 0-aibv-dzhzh. Immunizations. She is up-to-date on her COVID vaccinations. flu vaccine will be given today diabetic foot exam she was following with Dr. Sierra he is retired and now she will be going to General health concerns discussed with patient .patient will follow up in 6 months 10/27/2024 Tobacco abuse counseling (ICD-10 - Z71.6) Ms. Will is a 64-year-old lady with hypertension, hyperlipidemia, DM2, acid reflux, hypothyroidism and multiple sclerosis tobacco dependence is here for 6 months follow-up Diabetes mellitus with retinopathy. HbA1c is 6.9 labs reviewed resulted on 10/13/24. She will continue her medication including Trulicity and Metformin 1000 MG. check A1c.On the next appointment. Hypertension. Blood pressure well controlled on current regimen. Continue Losartan 50 MG. blood pressure is 116/80 stable, lab work reviewed and discussed with patient albumin creatinine ratio is within normal limits basic metabolic panel is unremarkable.lab work was done on 10/13/24 Hyperlipidemia. lipid panel within normal limits. Continue Atorvastatin 40 MG. Hypothyroidism. Continue Levothyroxine 25 MCG and advised to take it first thing in the morning on an empty stomach. Nicotine dependence. She is still currently smoking and cessation advised.Nicotine gum replacement prescription has been given fall and headaches. She has no neurological deficit, we will obtain a CT of the head and make sure there is no bleed. This could be due to concussion. Tylenol as needed. 04/28/2024 Tobacco abuse counseling (ICD-10 - Z71.6) [...] blood sugars at home. She sees her distribution dispatcher. Foot care discussed. Continue Trulicity and Metformin [...] gum was given Glaucoma. She sees her distribution dispatcher regularly.in Egan obesity exercise diet controlled and lifestyle modification was advised Dental screening. She sees dentist regularly. Breast cancer screening. She is up-to-date on her mammogram. Colon cancer screening. She had her colonoscopy done in 2018 and is on 4-zjmf-mybng. Immunizations. She is up-to-date on her COVID [...] Electrocardiogram (EKG) 01/03/2019 Electrocardiogram (EKG) 12/16/2017 TSH 06/16/2018 TSH 12/16/2017 Comp. Metabolic Panel (14) 12/09/2017 MICROALBUMIN,URINE 12/16/2017 HEMOGLOBIN A1C 12/16/2017 HEMOGLOBIN A1C WITH EST GLUCOSE 04/24/[address] Brain WO 10/27/2024 Hemoglobin A1C 06/16/2018 Lipid Panel 12/09/2017 Xray: Chest-Standard Frontal & Lat 03/12 CHEST C- CT 10/29/2023 COVID-19 (NOVEL CORONAVIRUS), RNA PCR Hemoglobin [id number] 04/28/2024 CBC With Differential/Platelet-[id number] Albumin/Creatinine Ratio,Urine-[id number] TSH+Free [id number] 04/28/2024 Comp. Metabolic Panel [id number] 2023 Future Test Test Name Order Date COMPREHENSIVE METABOLIC PANEL 09/30/2021 HEMOGLOBIN A1C WITH EST GLUCOSE 10/01/19 22 LIPID PANEL 09/30/2021 MICROALBUMIN, URINE 09/30/2021 TSH WITH REFLEX TO FT4 09/30/2021 HEMOGLOBIN A1C WITH EST GLUCOSE 01/03/20 22 T4, FREE 01/02/2022 TSH WITH REFLEX TO FT4 01/02/2022 HEMOGLOBIN A1C WITH EST GLUCOSE 02/05/20 22 COMPREHENSIVE METABOLIC PANEL 04/24/2022 HEMOGLOBIN A1C WITH EST GLUCOSE 04/24/20 22 LIPID PANEL 04/24/2022 MICROALBUMIN, URINE 04/24/2022 T4, FREE 04/24/2022 TSH WITH REFLEX TO FT4 04/24/2022 HEMOGLOBIN A1C WITH EST GLUCOSE 10/15/19 TSH WITH REFLEX TO FT4 10/14/2022 HEMOGLOBIN A1C WITH EST GLUCOSE 04/28/20 Next Appt Details Provider Name:Damon Maldonado, 1 09:30:00 AM, [address] [place] [address], [phone], Insurance Providers Payer Name Payer Address Payer Phone Subscriber Number Group Number Insured Name Patient Relationship to Insured Coverage Start Date Coverage End Date [facility] [address] [place] [address] [phone] [id number] Wendy Will Self - patient is the [...]
--- OUTSIDE RECORDS SUMMARY | 2025-02-19 09:14 | XMS_ITS ---
Author Name CRIS Organization Unknown Encounters Encounter Type Encounter Reason Primary Diagnosis Location Date Ambulatory [facility] 05/02/2024 Care Team Organization Name Specialty Phone Email Start Date End Da te [facility] 2024 [facility] 05/19/2024 [facility] Sanjay [facility] 04/13/2024 [facility] Joel RosadoWhite [facility] 07/13/2022
--- OUTSIDE RECORDS SUMMARY | 2025-02-19 09:14 | XMS_ITS | Clinical Summary ---
Author Organization [facility] Address [address] [place] [address] Care Team Providers Care Silvering Department Supervisor Name Role Phone Unavailable Primary Care Provider Unavailabl e Source Comments PLEASE NOTE, if this patient is a minor, it may be UNLAWFUL to discuss sensitive information that is contained in these records (such as FAMILY PLANNING, MENTAL HEALTH or SUBSTANCE ABUSE) with the minor patient's parent or other person without the patient's specific authorization.[facility] Immunizations Immunization Administration Dates Next Due Moderna COVID-19 Vaccine, [...] Health Maintenance Due Date Last Done Comments Anxiety Screening 1962 Diabetes Screening 1962 HPV Screening 1962 Hepatitis C Screening 1962 Lipid Screening 1962 Pap + HPV 1962 Tobacco Screening 1962 HIV Screening 1977 Hypertension Screening (#1) 02/15/1980 Imm-DTaP/Tdap/Td (1 - Tdap) 1981 Cervical Cancer Screening 1983 Pap Smear 1983 Breast Cancer Screening (Mammogram) 2002 CT Colonography 2007 Colonoscopy 2007 Colorectal Cancer Screening 2007 FIT/gFOBT 2007 Fecal DNA 2007 Flexible Sigmoidoscopy 2007 Asi-DFAUM-40 ( season) 2024 08/22/2021, 10/14/2020, 09/16/2020 Alcohol and Drug Screen 07/05/2024 Depression Annual Screen 07/05/2024 Imm-Influenza (#1) 2025 05/19/2019 Imm-Pneumococcal 50+ (3 of 3 - PCV20 or PCV21) 07/23/2025 07/23/2020, 01/11/2019 Imm-Zoster, Recombinant Completed 12/30/2020, 07/23 Cervical Ablation/Cold-Knife Conization Discontinued Cervical Cryotherapy Discontinued Colposcopy Discontinued Endometrial Biopsy Discontinued Excision/Leep Discontinued HPV Genotyping Discontinued Vaginal Pap Discontinued Vulvoscopy Discontinued Insurance [employer]/DORIS GRANDE
--- OUTSIDE RECORDS SUMMARY | 2025-02-19 09:14 | XMS_ITS | Clinical Summary ---
Author Organization [facility] Address [address] [place] [address] Care Team Providers Care Fish Processing Supervisor Name Role Phone Christopher Bellamy MD Primary Care Provider [phone] Social History Tobacco Use Types Packs/Day Years [...] AM EDT [facility]ointment [facility] [address] [address] Health Maintenance Due Date Last Done Comments DTaP,Tdap,and Td Vaccines (1 - Tdap) 1981 Cervical Cancer Screening: Pap Smear 1983 Pneumococcal Vaccine: 50+ Years (1 of 1 - PCV) 02/15/2012 Zoster Vaccines (1 of 2) 02/15/2012 Colorectal Cancer Screening: Colonoscopy 06/07/2022 HIV Screening 06/07/2022 Hepatitis C Screening 06/07/2022 Medicare Annual Wellness Visit 06/07/2022 Social Influencers of Health Screening 06/07/2022 COVID-19 Vaccine ( season) 2024 Depression Screening 07/05/2024 Influenza Vaccine (#1) 2025 Breast Cancer Screening 03/13/2026 03/13/20 24, 03/10/2023, 03/04/2022, Additional history exists RSV Immunization Adult Patients (1 - 1-dose 75+ series) 2037 HIB [...] age to complete this topic Meningococcal B Vaccine Aged Out No l onger eligible based on patient's age to complete this topic RSV Immunization Patients Under 20 months Aged Out No longer eligible based on patient's age to complete this topic Varicella Vaccines Aged Out No longer eligible based on patient's age to complete this topic Procedures Procedure Name Priority Date/Time Associated Diagnosis Comments [facility] SCREENING DIGITAL Routine 03/13/2024 10:24 AM EDT Encounter for screening mammogram for malignant neoplasm of breast from Last 3 Months or Most Recently Relevant to Health Maintenance Results * [facility] SCREENING DIGITAL (03/13/2024 10:24 AM EDT) Anatomical Region Laterality Modality Mammography 03/13/2024 8:05 AM EDT Narrative 03/13/2024 10:24 AM EDT [facility] Diagnostic Imaging Department [address] [place] [address] Patient: RANJITH AVENDANO.O.B./Age/Sex: 1960 - 64 - F Unit#: [id number] Location/Status: SPDIMAM/REG CLI Mnemonic/Ordering Site: [facility] Ordering Physician: CHRISTOPHER BELLAMY MD [facility] Screening Digital - 03/13/24 - [id number] Report Status:Signed EXAM: [facility] Screening Digital EXAM DATE AND TIME: 03/13/2024 8:44 AM HISTORY: Screening. Right breast biopsy in 2012, pathology benign. COMPARISON: 03/10/23, 03/04/22, 02/24/21 TECHNIQUE: Bilateral digital breast tomosynthesis was performed in the CC and MLO projections. Computer aided detection with [employer] 3D 3.1 was employed. TISSUE DENSITY: b. There are scattered areas of fibroglandular density. FINDINGS: No suspicious masses, grouped microcalcifications, or areas of architectural distortion are seen. A biopsy marker is again seen in the central right breast. Skin calcifications are present. The vascularity is unremarkable. IMPRESSION: Stable mammographic appearance of the breasts. No evidence of malignancy is seen. A negative mammogram in the presence of a clinically suspicious palpable abnormality does not preclude the possibility of malignancy or alter the indications for biopsy. BI-RADS: Category 2: Benign RECOMMENDATION(S): 1: Routine screening mammogram BILATERAL in 1 year. [facility] performed at [facility] [address] [place] [address] Dictating Physician: CONY ARMAS MD Electronically Signed by: CONY ARMAS MD Dic Date/Time: 03/13/24 1023 Sign date/Time: 03/13/24 1024 Procedure Note Cony Armas MD - 04/19/2024 [facility] Diagnostic Imaging Department [address] [place] [address] Patient: RANJITH AVENDANO/Age/Sex: 1960 - 64 - F Unit#: [id number] Location/Status: SPDIMAM/REG CLI Mnemonic/Ordering Site: [facility] Ordering Physician: CHRISTOPHER BELLAMY MD [facility] Screening Digital - 03/13/24 - [id number] Report Status:Signed EXAM: [facility] Screening Digital EXAM DATE AND TIME: 03/13/2024 8:44 AM HISTORY: Screening. Right breast biopsy in 2012, pathology benign. COMPARISON: 03/10/23, 03/04/22, 02/24/21 TECHNIQUE: Bilateral digital breast tomosynthesis was performed in the CCand MLO projections. Computer aided detection with [employer] 3D 3.1was employed. TISSUE DENSITY: b. There [...] Mammogram performed at [facility] [place] [address] Dictating Physician: CONY ARMAS MD Electronically Signed by: CONY ARMAS MD Dic Date/Time: 03/13/24 1023 Sign date/Time: 03/13/24 1024 Christopher Bellamy MD IMG BI PROCEDURES Final Result from Last 3 Months or Most Recently Relevant to Health Maintenance Insurance [facility] MEDICARE ADVANTAGE Care Teams Fish Processing Supervisor Relationship Specialty Start Date End Date Christopher Bellamy MD [address] [place] [address] PCP - General 07/02/23
--- OUTSIDE RECORDS SUMMARY | 2025-02-19 09:14 | XMS_ITS | Encounter Summary ---
Author Organization [facility] Address [address] [facility] [address] [place] [address] Care Team Providers Care Iron Plastic Bullet Maker Name Role Phone No Pcp, Per Patient Primary Care Provider Christopher See MD Primary Care Provider Reason for Visit * Reason Comments Med Change Request Encounter Details Date Type Department Care Team (Late Contact Info) Description 12/28/2022 Refill [facility] [address] [place] [address] Gabriel Gracia MD [address] [place] [address] Primary open angle glaucoma (POAG) of both eyes, moderate stage Social History Tobacco Use Types Packs/Day Years Used Date Smoking Tobacco: Every Day Cigarettes 0.5 15 Comments Unknown Sex and Gender Information Value Date Recorded Sex Assigned at Not on file Legal Sex Female 6:48 AM EST Gender Identity Not on file Sexual Orientation Not on file COVID-19 Exposure Response Date Recorded In the last 10 days, have yo u been in contact with someone who was confirmed or suspected to have Coronavirus/COVID-19? No / Unsure 12/15/2022 3:08 PM EDT documented as of this encounter Plan of Treatment Upcoming Encounters Date Type Department Care Team (Late Contact Info) Description 03/14/2025 10:45 AM EDT Office Visit [facility] [address] [place] [address] Ronna Hirsch MD [address] [facility] [address] [place] [address] documented as of this encounter Visit Diagnoses Diagnosis Primary open angle glaucoma (POAG) of both eyes, moderate stage documented in this encounter Care Teams Iron Plastic Bullet Maker Relationship Specialty Start Date End Date No Pcp, Per Patient CHRISTIANE PCP - General 07/10/22 01/12/23 Christopher Rosado MD [address] [facility] [place] [address] PCP - General Chief Maintenance Supervisor 01/13/23 documented as of this encounter
--- OUTSIDE RECORDS SUMMARY | 2025-02-19 09:14 | XMS_ITS | Patient Health Record ---
Author Organization [facility] Address [address] [place] [address] Care Team Providers Care Floor Sander Name Role Phone Christopher Rosado Primary Care Provider Shelia Barragan Unavailable [phone] Juan Sierra Unavailable [phone] Allergies Allergen (clinical drug ingredient) Drug/Non Drug Allergy documented on EMR Reaction Allergy Type Onset Date Status povidone-iodine Betadine sore throat, swelling Drug Allergy Active Bee Sting Unknown Allergy Active Shellfish (FN) Shellfish-derived Products Unknown Drug Allergy Active Results Component Value Reference Range Notes HEMOGLOBIN A1C (GLYCOHEMOGLO BIN) Reviewed date:08/11/2024 10:50:55 AM Interpretation: Performing Lab: Notes/Report: HEMOGLOBIN A1C % (HH) 5.0 Reason For Referral No Information Medications Medication SIG (Take, Route, Frequency, Duration) Notes Start Date End Date Status Invokana 300 MG Oral; Duration: 90 Active Januvia Not-Taking Aspirin Low Dose 81 MG Oral; Duration: 90 Active Extra Depth Diabetic Shoes with 3 Pair Custom heat-molded multi-density innersoles for 1 year Dx: Not-Taking Trulicity once a week inj Active Doxycycline (Rosacea) Not-Taking Minoxidil Active Levothyroxine Sodium 150 MCG Oral; Duration: 90 Not-Takin g Doxycycline Active Levothyroxine Sodium 25 MCG 1 tablet in the morning on an empty stomach Orally Once a day; Duration: 30 day(s) Active Extra Depth Diabetic Shoes with 3 Pair Custom heat-molded multi-density innersoles for 1 year Dx: Active Tysabri Active metFORMIN HCl 1000 MG Oral; Duration: 90 Active Losartan Potassium 50 MG Oral; Duration: 90 Active Levothyroxine Sodium 25 MCG 1 tablet in the morning on an empty stomach Orally Once a day Active Esomeprazole Magnesium 40 MG Oral; Duration: 90 Active Atorvastatin Calcium 40 MG Oral; Duration: 90 Active glipiZIDE 5 MG 1 tablet Oral Once a day Not-Taking Immunizations Vaccine Route Administration Date Status Comme nts Influenza Unknown 05/19/2019 Administered Influenza Unknown 05/05/2024 Administered COVID-19 Moderna Vaccine Unknown 09/17/2020 Administere d COVID-19 Moderna Vaccine Unknown 10/15/2020 Administere d Social History Tobacco Use: Social History Observation [...] to 3 times a week (3 points) How many drinks did you have on a typical day when you were drinking in the past year? 3 or 4 drinks (1 point) How often did you have six o r more drinks on one occasion in the past year? Less than monthly (1 point) Points 5 Interpretation Positive Problems Problem Type SNOMED Code ICD Code Onset Dates Problem Status W/U Status Risk Notes Problem Polyneuropathy due to type 2 diabetes mellitus (637693866) Type 2 diabetes mellitus with diabetic polyneuropathy (E11.42) Active confirmed Vital Signs Blood pressure diastolic 70 mm Hg 12/19/2024 Height 5ft4in in 12/19/2024 Blood pressure systolic 120 mm Hg 12/19/2024 Weight 187 lbs 12/19/2024 BMI 32.09 kg/m2 12/19/2024 Encounters Encounter Location Date Provider Diagnosis [facility] [address] [address] 03/17/2024 Juan Sierra Tinea unguium B35.1 ; Pain in right foot M79.671 ; Pain in left foot M79.672 ; Type 2 diabetes mellitus with diabetic polyneuropathy E11.42 ; Pain in right toe(s) M79.674 ; Pain in left toe(s) M79.675 ; Metatarsalgia, left foot M77.42 and Metatarsalgia, right foot M77.[address] [address] 06/12/2024 Shelia Perica Type 2 diabetes mellitus with diabetic polyneuropathy E11.[address] [address] 08/11/2024 Shelia Perica Type 2 diabetes mellitus with diabetic polyneuropathy E11.[address] [address] 10/12/2024 Shelia Perica Type 2 diabetes mellitus with diabetic polyneuropathy E11.[address] [address] 12/19/2024 Shelia Perica Type 2 diabetes mellitus with diabetic polyneuropathy E11.[address] [address] 06/12/2024 Shelia Perica Assessments Encounter Date Diagnosis (ICD Code) Assessment Notes Treatment Notes Treatment Clinical Notes Section Notes 03/17/2024 Tinea unguium (ICD-10 - B35.1) 03/17/2024 Pain in right foot (ICD-10 - M79.671) 06/12/2024 Type 2 diabetes mellitus with diabetic polyneuropathy (ICD-10 - E11.42) 08/11/2024 Type 2 diabetes mellitus with diabetic polyneuropathy (ICD-10 - E11.42) 10/12/2024 Type 2 diabetes mellitus with diabetic polyneuropathy (ICD-10 - E11.42) 12/19/2024 Type 2 diabetes mellitus with diabetic polyneuropathy (ICD-10 - E11.42) 03/17/2024 Pain in left foot (ICD-10 - M79.672) 03/17/2024 Type 2 diabetes mellitus with diabetic polyneuropathy (ICD-10 - E11.42) 03/17/2024 Pain in right toe(s) (ICD-10 - M79.674) 03/17/2024 Pain in left toe(s) (ICD-10 - M79.675) 03/17/2024 Metatarsalgia, left foot (ICD-10 - M77.42) 03/17/2024 Metatarsalgia, right foot (ICD-10 - M77.41) Plan Of Treatment Pending Test Test Name Order Date [id number] SKIN LESIONS, OVER 4 06/09/20 [id number] SKIN LESIONS, OVER 4 08/18/19 16366-AWYT SKIN LESIONS, OVER 4 11/07/19 21649-TIGY SKIN LESIONS, OVER 4 01/23/20 83371-YJVU SKIN LESIONS, OVER 4 04/23/20 16013-NJNQ SKIN LESIONS, OVER 4 07/26/19 20424-GVWW SKIN LESIONS, OVER 4 10/26/19 19708-LFXK SKIN LESIONS, OVER 4 02/08/20 57546-CYVL SKIN LESIONS, OVER 4 04/25/20 13917-WUGB SKIN LESIONS, OVER 4 08/15/19 Next Appt Details Provider Name:Shelia alvarez, 03/01/2025 04:00:00 PM, [address] [place] [address], [phone], Provider Name:Shelia alvarez, 05/03/2025 09:00:00 AM, [address] [place] [address], [phone], Insurance Providers Payer Name Payer Address Payer Phone Subscriber Number Group Number Insured Name Patient Relationship to Insured Coverage Start Date Coverage End Date [facility] [address] [place] [address] [id number] Wendy Will Self - patient is the insured Medical (General) History Medical History History ICD Code Diabetic Hypertension Multiple sclerosis Reflux ( GERD) Thyroid disorder Surgical History Surgery Date(Month/Year) foot surgery right 2003 Hand Surgery right 1984 cataract surgery 11/2021 tubes, glaucoma 2021 lasik 2021 eye surgery, glaucoma issue 02/19/23
== END 2025-02-19 09:28 | disposition home or self-care (01) ==
LOC: HO.HSM 08:48
PROVIDERS: PCP Hospitalist; Referring Provider Hospitalist; Visit Provider Registered Nurse
DX: G35 Multiple sclerosis (principal)
CPT/HCPCS: 99214